=== PATIENT | male | born 1935 | race Caucasian/White ===

== ENCOUNTER 2020-05-01 16:11 | Emergency (ER) | payer MEDICARE, OTHER, SELFPAY ==
--- NOTE | ~2020-05-01 | XR_ITS ---
EXAMINATION: XR chest 1V portable DATE: 05/01/2020 17:20 INDICATION: Fever and cough. TECHNIQUE: A single frontal view of the chest was obtained. COMPARISON: Chest single view 07/14/2010, chest CT 09/30/17 FINDINGS: The lungs are hyperexpanded, consistent with emphysema. There is mild scarring at the lung apices. No pleural effusion or pneumothorax. The heart size is normal. IMPRESSION: 1. Mild scarring at the lung apices. 2. Emphysema. Reviewed, dictated and finalized at location A. [employer]
[2020-05-01 16:24] VITALS: BP 144/45; PULSE 70; RESP 17; TEMP 36.9; O2SAT 99
[2020-05-01 17:27] LABS: Basophils Percent Auto 0.3 % (0.2-1.2); Eosinophils Percent Auto 0.2 % (0-4.4); Hematocrit 41.6 % (42.0-52.0); Hemoglobin 13.9 g/dL (14.0-18.0); Immature Granulocyte Absolute 0.01 K/mm3 (0.00-0.031); Immature Granulocyte Percent A 0.2 % (0-0.5); Mean Corpuscular HGB Conc 33.4 g/dl (32-36); Mean Corpuscular Hemoglobin 31.8 pg (26-34); Mean Corpuscular Volume 95.2 fl (80-100); Mean Platelet Volume 10.3 fl (7.4-10.4); Monocytes Absolute Auto 0.6 K/mm3 (0.1-0.6); Monocytes Percent Auto 10.8 % (2.6-8.5); Neutrophils Absolute Auto 3.6 K/mm3 (1.3-6.7); Neutrophils Percent Auto 62.5 % (45.5-73.1); Platelet Count Result 186 k/mm3 (150-375); Red Blood Count 4.37 M/mm3 (4.6-6.20); Red Cell Distribution Width 13.1 % (11.5-14.5); White Blood Count 5.8 K/mm3 (4.5-10.0)
--- NOTE | 2020-05-01 17:38 | ED.GENADULT ---
HPI - General Adult General Chief complaint: Upper Respiratory Infection Stated complaint: respiratory infection, possible covid Time Seen by Provider: 05/01/20 17:21 Source: patient Mode of arrival: ambulatory Limitations: no limitations History of Present Illness HPI narrative: Patient is 84 years old came from home complaining of intermittent, headache, body ache, sore throat, fever, chills usually gets better with Tylenol for the last few days.. Currently patient feeling okay denying any symptoms. Patient's had a diagnosis of COVID-19 and was admitted to our hospital 4 days ago. Currently patient denying any fever, chills, nausea, vomiting, headache, chest pain, shortness of breath or back pain. Related Data Home Medications Medication Instructions Recorded Confirmed docusate sodium 100 mg PO DAILY 05/01/20 loratadine 10 mg PO DAILY 05/01/20 losartan 100 mg PO DAILY 05/01/20 morphine 30 mg PO Q12-24H 05/01/20 nystatin 100,000 unit PO QID 05/01/20 pantoprazole 40 mg PO QAM 05/01/20 ropinirole 0.5 mg PO TID 05/01/20 trazodone 100 mg PO HS PRN 05/01/20 Allergies Allergy/AdvReac Type Severity Reaction Status Date / Time brimonidine Allergy Unknown Verified 05/01/20 17:44 lisinopril Allergy Unknown Verified 05/01/20 17:44 travoprost [From Travatan Z] Allergy Unknown Verified 05/01/20 17:44 Review of Systems Review of Systems: Narrative: CONSTITUTIONAL: Denies fever, chills, or sweats. EYES: Denies visual changes, redness, or discharge. ENT: Denies rhinorrhea, congestion, sore throat, or otalgia. CARDIOVASCULAR: Denies chest pain, palpitations, or edema. RESPIRATORY: Denies cough or dyspnea. GASTROINTESTINAL: Denies abdominal pain, nausea, vomiting, or diarrhea. GENITOURINARY: Denies dysuria or hematuria. SKIN: Denies rash or itching. MUSCULOSKELETAL: Denies back pain, joint pain, or myalgia. NEUROLOGIC: Denies headache, numbness, or weakness. PSYCHIATRIC: Denies anxiety or depression. [facility] Past Medical History Medical History (Updated 05/01/20 @ 18:23 by Evelin Alvarado MD) Community acquired pneumonia COPD (chronic obstructive pulmonary disease) Hypertension Social History Social History (Updated 05/01/20 @ 18:18 by Evelin Alvarado MD) Social History: Patient does not smoke, or drink or uses drugs Second hand tobacco smoke exposure: No Gender identity (if verbalized by the patient): Male Exam Narrative: Exam Narrative: General appearance: Well-developed, well-nourished. Patient granddaughter at the bedside Skin: Normal color Head: Normocephalic, nontraumatic Eyes: Clear conjunctiva ENT: Oropharynx normal, ears normal, nose normal Neck: Supple, nontender Chest and respiratory: Airway patent, no respiratory distress, no accessory muscle use Heart: Regular rate/rhythm Abdomen: Soft, nontender, no organomegaly, quiet bowel sounds Vascular: Normal peripheral pulses, normal capillary refill. Musculoskeletal: Normal range of motion, nontender back Neurologic: Alert and oriented ?3, [employer] is normal as tested, no gross motor deficit Course Course Emergency Course: Stable Vital Signs Vital signs: Vital Signs Temperature 36.9 C 05/01/20 16:24 Pulse Rate 70 05/01/20 16:24 Respiratory Rate 17 05/01/20 16:24 Blood Pressure 144/45 H 05/01/20 16:24 Pulse Oximetry 99 05/01/20 16:24 Temperature 36.9 C 05/01/20 16:24 Pulse Rate 70 05/01/20 16:24 Respiratory Rate 17 05/01/20 16:24 Blood Pressure 144/45 H 05/01/20 16:24 Pulse Oximetry 99 05/01/20 16:24 Medical Decision Making MDM Narrative Medical decision making narrative: Currently patient does not have symptoms of COVID-19
[2020-05-01 17:40] LABS: Alanine Aminotransferase 11 U/L (4-50); Albumin Level 4.1 g/dL (3.5-5.1); Alkaline Phosphatase 92 U/L (38-126); Anion Gap 7 mmol/L (8-16); Aspartate Amino Transferase 22 U/L (17-59); Bilirubin,Total 0.2 mg/dL (0.2-1.3); Blood Urea Nitrogen 18 mg/dL (9-20); Calcium 8.7 mg/dL (8.4-10.2); Carbon Dioxide 33 mmol/L (22-30); Chloride 97 mmol/L (98-107); Estimated CRCL calculation 50 ml/min; Estimated Glomerular Filt Rate > 60; Glucose 94 mg/dL (75-110); Potassium 4.3 mmol/L (3.4-5.0); Sodium 137 mmol/L (137-145)
[2020-05-01 18:43] VITALS: BP 128/80; PULSE 74; RESP 18; TEMP 36.7; O2SAT 99
[2020-05-03 18:19] LABS: SARS-CoV-2 RNA PCR Positive
== END 2020-05-01 18:44 | disposition home or self-care (01) ==
PROVIDERS: Emergency Provider Emergency Medicine
DX: U07.1 COVID-19 (principal); J44.9 Chronic obstructive pulmonary disease, unspecified; I10 Essential (primary) hypertension
CPT/HCPCS: 36415; 71045; 80053; 85025; 87635; 99283; C9803; U0003

== ENCOUNTER 2021-04-28 14:55 | Emergency (ER) | payer MEDICARE, SELFPAY ==
--- NOTE | ~2021-04-28 | XR_ITS ---
XR ankle RT min 3V 04/28/2021 15:39 INDICATION: Cellulitis. Evaluate for osteomyelitis. Right ankle pain. PROCEDURE: 4 views right ankle COMPARISON: No prior studies for comparison. FINDINGS: Fracture, dislocation or subluxation is not identified. Ankle mortise intact. Talar dome wi thin normal limits. No erosive changes are seen. The soft tissues appear within normal limits. No fo reign bodies are identified. IMPRESSION: 1: No significant bone or joint abnormality. If there is concern for osteomyelitis, correlation with MRI is recommended. Reviewed, dictated and finalized at location A. IMPRESSION: 1: No significant bone or joint abnormality. If there is concern for osteomyeli tis, correlation with MRI is recommended.
[2021-04-28 14:56] VITALS: BP 128/60; PULSE 67; RESP 17; TEMP 36.9; O2SAT 97
--- NOTE | 2021-04-28 15:43 | ED.WOUNDLAC ---
HPI - Wound/Laceration General Chief Complaint: Wound/Laceration Stated Complaint: RIGHT ANKLE WOUND Time Seen by Provider: 04/28/21 15:10 Source: patient History of Present Illness HPI narrative: Patient presents with concern for worsening wound. Patient reports he had some erythema to the outside of his right ankle approximately 1 week ago he was seen and in urgent care and started on doxycycline. Reports his pain is worsening he has not noted much improvement in his erythema family is concerned so he came to the ER for evaluation. Reports his pain is achy, constant, worse with walking around, no radiation. Denies any fevers or chills denies any nausea vomiting or diarrhea Related Data Home Medications Medication Instructions Recorded Confirmed docusate sodium 100 mg PO DAILY 05/01/20 loratadine 10 mg PO DAILY 05/01/20 losartan 100 mg PO DAILY 05/01/20 morphine 30 mg PO Q12-24H 05/01/20 pantoprazole 40 mg PO QAM 05/01/20 ropinirole 0.5 mg PO TID 05/01/20 trazodone 100 mg PO HS PRN 05/01/20 albuterol (refill) See Rx Instructions .ROUTE 04/28/21 04/28/21 .COMPLEX PRN budesonide-formoterol [Symbicort] 2 puff INHALATION Q12H 04/28/21 doxycycline hyclate 04/28/21 ipratropium-albuterol spray INHALATION 04/28/21 Allergies Allergy/AdvReac Type Severity Reaction Status Date / Time brimonidine Allergy Unknown Verified 04/28/21 15:17 lisinopril Allergy Unknown Verified 04/28/21 15:17 travoprost [From Travatan Z] Allergy Unknown Verified 04/28/21 15:17 Review of Systems Review of Systems: CONSTITUTIONAL: Denies fever, chills, or sweats. EYES: Denies visual changes, redness, or discharge. ENT: Denies rhinorrhea, congestion, sore throat, or otalgia. CARDIOVASCULAR: Denies chest pain, palpitations, or edema. RESPIRATORY: Denies cough or dyspnea. GASTROINTESTINAL: Denies abdominal pain, nausea, vomiting, or diarrhea. GENITOURINARY: Denies dysuria or hematuria. SKIN: Denies rash or itching. MUSCULOSKELETAL: Denies back pain, joint pain, or myalgia. NEUROLOGIC: Denies headache, numbness, dizziness, or weakness. PSYCHIATRIC: Denies anxiety or depression. All systems reviewed & are unremarkable except as noted in HPI and below PMFSH Past Medical History Medical History Community acquired pneumonia COPD (chronic obstructive pulmonary disease) Hypertension Social History Social History Social History: Patient does not smoke, or drink or uses drugs Second hand tobacco smoke exposure: No Gender identity (if verbalized by the patient): Male Exam Narrative: GENERAL: Well-appearing, well-nourished, and in no acute distress. HEAD: Normocephalic, atraumatic. EYES: PERRLA and EOMI. ENT: Nares clear, no rhinorrhea or epistaxis. Mucous membranes moist. NECK: Supple. No masses. No JVD EXTREMITIES: Normal range of motion 2 x 2 area of erythema and warmth with a central scab that is moderately tender to palpation. Pain with palpation is diffuse around the lateral aspect of his right ankle there is no focal bony tenderness. The ankle joint is not warm or edematous there is no pain with axial loading. SKIN: Warm, dry, no rash. NEURO: No focal deficits. Alert and oriented x3. PSYCH: Normal mood and affect. Course Reevaluation(s) Reevaluation #1: Patient resting comfortably imaging and labs are reviewed with patient. Patient is comfortable with the outpatient plan and changing his medications. Family at bedside and also agree with plan. Date: 04/28/21 Time: 17:06 Vital Signs Vital signs: Vital Signs Temperature 36.9 C 04/28/21 14:56 Pulse Rate 67 04/28/21 14:56 Respiratory Rate 17 04/28/21 14:56 Blood Pressure 128/60 04/28/21 14:56 Pulse Oximetry 97 04/28/21 14:56 Temperature 36.9 C 04/28/21 14:56 Pulse Rate 60 04/28/21 17:32 Respiratory Rate 15 04/28/21 17:32 Blood Press
[2021-04-28 16:01] LABS: Basophils Absolute Auto 0.1 K/mm3 (0.0-0.1); Basophils Percent Auto 0.6 % (0.2-1.2); Eosinophils Absolute Auto 0.1 K/mm3 (0-0.3); Eosinophils Percent Auto 1.1 % (0-4.4); Hematocrit 42.9 % (42.0-52.0); Hemoglobin 14.1 g/dL (14.0-18.0); Immature Granulocyte Absolute 0.02 K/mm3 (0.00-0.031); Immature Granulocyte Percent A 0.2 % (0-0.5); Lymphocytes Absolute Auto 2.06 K/mm3 (0.9-3.2); Lymphocytes Percent Auto 19.9 % (18.3-44.2); Mean Corpuscular HGB Conc 32.9 g/dl (32-36); Mean Corpuscular Hemoglobin 32.6 pg (26-34); Mean Corpuscular Volume 99.1 fl (80-100); Mean Platelet Volume 10.4 fl (7.4-10.4); Monocytes Absolute Auto 0.9 K/mm3 (0.1-0.6); Monocytes Percent Auto 8.5 % (2.6-8.5); Neutrophils Absolute Auto 7.2 K/mm3 (1.3-6.7); Neutrophils Percent Auto 69.7 % (45.5-73.1); Platelet Count Result 221 k/mm3 (150-375); Red Blood Count 4.33 M/mm3 (4.6-6.20); Red Cell Distribution Width 12.4 % (11.5-14.5); White Blood Count 10.4 K/mm3 (4.5-10.0)
[2021-04-28 16:25] LABS: Alanine Aminotransferase 12 U/L (4-50); Albumin Level 3.8 g/dL (3.5-5.1); Alkaline Phosphatase 84 U/L (38-126); Anion Gap 8 mmol/L (8-16); Aspartate Amino Transferase 21 U/L (17-59); Bilirubin,Total 0.6 mg/dL (0.2-1.3); Blood Urea Nitrogen 21 mg/dL (9-20); Calcium 9.2 mg/dL (8.4-10.2); Carbon Dioxide 32 mmol/L (22-30); Chloride 99 mmol/L (98-107); Estimated CRCL calculation 46 ml/min; Estimated Glomerular Filt Rate > 60; Glucose 113 mg/dL (65-110); Sodium 139 mmol/L (137-145)
[2021-04-28 16:25] LABS: Erythrocyte Sedimentation Rate 8 mm/hr (0-20)
[2021-04-28 16:52] LABS: CRP 1.3 mg/dL (<1.0); Potassium 4.5 mmol/L (3.4-5.0)
[2021-04-28 17:32] VITALS: BP 112/78; PULSE 60; RESP 15; O2SAT 100
== END 2021-04-28 17:35 | disposition home or self-care (01) ==
PROVIDERS: Emergency Provider Emergency Medicine
DX: L03.115 Cellulitis of right lower limb (principal); J44.9 Chronic obstructive pulmonary disease, unspecified; I10 Essential (primary) hypertension; Z87.01 Personal history of pneumonia (recurrent)
CPT/HCPCS: 36415; 73610; 80053; 85025; 85652; 86140; 99283

== ENCOUNTER 2022-02-17 22:12 | Inpatient (IN) | payer MEDICARE, OTHER, SELFPAY ==
[2022-02-17] VITALS (9 sets, daily range): BP systolic 115–162; BP diastolic 67–86; PULSE 64–94; RESP 21–35; TEMP 36.2; O2SAT 94–100
--- NOTE | ~2022-02-17 | XR_ITS ---
EXAMINATION: XR chest 1V portable DATE: 02/19/2022 05:45 INDICATION: Respiratory failure. TECHNIQUE: A single frontal view of the chest was obtained on 2 radiographs. COMPARISON: Chest single view 02/18/2022, chest CT 09/30/2017 FINDINGS: The lungs are hyperexpanded with lucencies, consistent with emphysema. There are airspace o pacities in the mid and upper lung zones. No pleural effusion or pneumothorax. The heart size is norm al. The endotracheal tube tip is 3.6 cm above the april. The nasogastric tube tip is in the stomach. A left upper extremity peripherally inserted central venous catheter (PICC) is seen with tip at the superior cavoatrial junction. There are changes of posterior fusion procedure in lumbar spine. IMPRESSION: 1. Stable airspace opacities in the mid and upper lung lung zones, likely at least predominantly scar ring. Pneumonia cannot be excluded. 2. Emphysema. Reviewed, dictated and finalized at location A. IMPRESSION: 1. Stable airspace opacities in the mid and upper lung lung zones, likely at le ast predominantly scarring. Pneumonia cannot be excluded. 2. Emphysema.
--- NOTE | ~2022-02-17 | XR_ITS ---
EXAMINATION: XR chest 1V portable DATE: 02/17/2022 22:46 INDICATION: Respiratory distress. TECHNIQUE: A single frontal view of the chest was obtained. COMPARISON: Chest single view 05/01/2020 FINDINGS: The lungs are hyperexpanded with lucencies, consistent with emphysema. There are airspace o pacities in the upper lung zones and right midlung zone. No pleural effusion or pneumothorax. The hea rt size is normal. IMPRESSION: 1. Airspace opacities in right midlung zone and the upper lung zones, likely at least predominantly s carring. Pneumonia cannot be excluded. 2. Emphysema. Reviewed, dictated and finalized at location A. IMPRESSION: 1. Airspace opacities in right midlung zone and the upper lung zones, likely at least predominantly scarring. Pneumonia cannot be excluded. 2. Emphysema.
--- NOTE | ~2022-02-17 | CT_ITS ---
EXAMINATION: CTA chest PE protocol DATE: 02/21/2022 12:02 INDICATION: Hypoxia. Shortness of breath. TECHNIQUE: Computed tomography angiography (CTA) of the chest was performed with 100 mL Omnipaque-350 intravenous contrast timed to evaluate the pulmonary arteries. Coronal maximum intensity projection 3D-reconstructions were created by the technologist. Automated exposure control and iterative reconst ruction technique were employed. The dose-length product was 202.25 mGy-cm. COMPARISON: Chest CT 09/30/2017 FINDINGS: There is moderate emphysema. There is chronic scarring at the lung apices. There is materia l in the right-sided bronchi, likely aspiration. There are dependent airspace and groundglass opaciti es in right lower lobe. There are centrilobular nodules and tree-in-bud opacities in right middle lob e. There is volume loss of right lung. Calcified bilateral lung nodules are consistent with old granu lomatous disease. There is a small left pneumothorax. There is a trace left pleural effusion. There a re tree-in-bud opacities in left lower lobe. The endotracheal tube tip is 4.2 cm above the april. Th e nasogastric tube tip is in the stomach. Calcifications in the spleen are consistent with old granul omatous disease. There is a 3 mm stone in right kidney. There is a 5 mm stone in left kidney. There i s no pulmonary embolus. There is kyphosis and moderate spondylosis of thoracic spine. IMPRESSION: 1. No pulmonary embolus. 2. Aspiration in the right-sided bronchi with volume loss of right lung and pneumonia involving right lower lobe and right middle lobe. Mild pneumonia in left lower lobe. 3. Small left pneumothorax. Trace left pleural effusion. I called this result to Dr. Mcghee. 4. Small right pleural effusion. 5. Mild emphysema. Reviewed, dictated and finalized at location A. IMPRESSION: 1. No pulmonary embolus. 2. Aspiration in the right-sided bronchi with volume loss of right lung and pne umonia involving right lower lobe and right middle lobe. Mild pneumonia in left lower lobe. 3. Small left pneumothorax. Trace left pleural effusion. I called this result t o Dr. Mcghee. 4. Small right pleural effusion. 5. Mild emphysema.
--- NOTE | ~2022-02-17 | XR_ITS ---
EXAMINATION: XR chest ET placement DATE: 02/18/2022 01:32 INDICATION: Intubation. TECHNIQUE: A single frontal view of the chest was obtained. COMPARISON: Chest single view 02/17/2022, 05/01/[address] 09/30/2017 FINDINGS: The lungs are hyperexpanded with lucencies, consistent with emphysema. There are airspace o pacities in right midlung zone and the upper lung zones. No pleural effusion or pneumothorax. The hea rt size is normal. The endotracheal tube tip is 4.1 cm above the april. The nasogastric tube tip is in the stomach with proximal side port in the distal esophagus. IMPRESSION: 1. Airspace opacities in right midlung zone in the upper lung zones, likely at least predominantly sc arring. Pneumonia cannot be excluded. 2. Emphysema. Reviewed, dictated and finalized at location A. IMPRESSION: 1. Airspace opacities in right midlung zone in the upper lung zones, likely at least predominantly scarring. Pneumonia cannot be excluded. 2. Emphysema.
--- NOTE | ~2022-02-17 | CT_ITS ---
EXAMINATION: CT brain wo con DATE: 02/18/2022 09:27 INDICATION: Anisocoria. TECHNIQUE: Computed tomography (CT) of the head was performed without intravenous contrast. The mA wa s adjusted according to patient size. Iterative reconstruction technique was employed. The dose-lengt h product was 681.00 mGy-cm. COMPARISON: Head CT 02/18/2022 FINDINGS: There is diffuse brain volume loss. There are scattered areas of low attenuation in the cer ebral white matter, which is within normal limits for the patient's age. There is no intracranial hem orrhage, acute infarction, or abnormal intracranial mass lesion. The ventricles are normal in size. T here are likely changes of ocular lens replacement surgeries. The mastoid air cells are normal. IMPRESSION: 1. Normal aging brain. Reviewed, dictated and finalized at location A. IMPRESSION: 1. Normal aging brain.
--- NOTE | ~2022-02-17 | XR_ITS ---
EXAMINATION: XR chest 1V portable DATE: 02/21/2022 05:27 INDICATION: Respiratory failure. TECHNIQUE: A single frontal view of the chest was obtained. COMPARISON: Chest single view 02/20/2022, chest CT 09/30/2017 FINDINGS: The lungs are hyperexpanded with lucencies, consistent with emphysema. There are airspace o pacities in the mid and upper lung zones. No pleural effusion or pneumothorax. The heart size is norm al. The endotracheal tube tip is 2.9 cm above the april. A left upper extremity peripherally inserte d central venous catheter (PICC) is seen with tip at the superior cavoatrial junction. The nasogastri c tube tip is beyond the inferior margin of the radiograph, but at least to the stomach. IMPRESSION: 1. Stable airspace opacities in the mid and upper lung zones, likely at least predominantly scarring. Pneumonia cannot be excluded. 2. Emphysema. Reviewed, dictated and finalized at location A. IMPRESSION: 1. Stable airspace opacities in the mid and upper lung zones, likely at least p redominantly scarring. Pneumonia cannot be excluded. 2. Emphysema.
--- NOTE | ~2022-02-17 | CT_ITS ---
EXAMINATION: CT brain wo con DATE: 02/18/2022 02:09 INDICATION: Altered mental status. TECHNIQUE: Computed tomography (CT) of the head was performed without intravenous contrast. The mA wa s adjusted according to patient size. Iterative reconstruction technique was employed. The dose-lengt h product was 681.00 mGy-cm. COMPARISON: None FINDINGS: There is diffuse brain volume loss. There are scattered areas of low attenuation in the cer ebral white matter, which is within normal limits for the patient's age. There is no intracranial hem orrhage, acute infarction, or abnormal intracranial mass lesion. The ventricles are normal in size. T he mastoid air cells are normal. There is mild mucosal thickening in the ethmoid sinuses. There are l ikely changes of ocular lens replacement surgeries. IMPRESSION: 1. Normal aging brain. Reviewed, dictated and finalized at location A. IMPRESSION: 1. Normal aging brain.
--- NOTE | ~2022-02-17 | XR_ITS ---
EXAMINATION: XR chest 1V portable DATE: 02/20/2022 05:42 INDICATION: Respiratory failure. TECHNIQUE: A single frontal view of the chest was obtained on 2 radiographs. COMPARISON: Chest single view 02/19/2022, chest CT 09/30/2017 FINDINGS: The lungs are hyperexpanded, consistent with emphysema. There are airspace opacities in the mid and upper lung zones. No pleural effusion or pneumothorax. The heart size is normal. The endotra cheal tube tip is 1.4 cm above the april. The nasogastric tube tip is in the stomach. A left upper e xtremity peripherally inserted central venous catheter (PICC) is seen with tip at the superior cavoat rial junction. IMPRESSION: 1. Stable airspace opacities in the mid and upper lung zones, likely at least predominantly scarring. Pneumonia cannot be excluded. 2. Emphysema. Reviewed, dictated and finalized at location A. IMPRESSION: 1. Stable airspace opacities in the mid and upper lung zones, likely at least p redominantly scarring. Pneumonia cannot be excluded. 2. Emphysema.
--- NOTE | ~2022-02-17 | XR_ITS ---
XR chest ET placement 02/21/2022 11:13 Indication: Respiratory distress Procedure: AP portable chest Comparison: Comparison to multiple prior studies sequentially, with oldest reviewed study dated 02/19. Findings: Endotracheal tube tip 5.8 cm above the april. PICC line tip in the SVC. Study limited by r otakaushik. Patchy bilateral airspace disease, compatible with pneumonia. No significant effusion or pne umothorax. Impression: 1: Patchy bilateral airspace disease, consistent with pneumonia. Reviewed, dictated and finalized at location A. Impression: 1: Patchy bilateral airspace disease, consistent with pneumonia.
--- NOTE | ~2022-02-17 | XR_ITS ---
EXAMINATION: XR abdomen/kub 1V DATE: 02/18/2022 01:33 INDICATION: Nasogastric tube placement. TECHNIQUE: A supine view of the abdomen was obtained. COMPARISON: None. FINDINGS: The lower abdomen is excluded. There are no dilated loops of bowel. There is a large volume of stool in the colon. The nasogastric tube tip is in the stomach. There are changes of posterior fu sadia procedure in lumbar spine. IMPRESSION: 1. Nasogastric tube tip in the stomach. Reviewed, dictated and finalized at location A.
--- NOTE | 2022-02-17 22:14 | ECG_ITS ---
Measurements Intervals Sebastian Rate: 87 P: 94 AR: 167 QRS: -72 QRSD: 126 T: 95 QT: 390 QTc: 472 Interpretive Statements SINUS RHYTHM WITH FREQUENT VENTRICULAR PREMATURE COMPLEXES BASELINE ARTIFACT LEFT AXIS DEVIATION CANNOT RULE OUT LATERAL MYOCARDIAL INFARCTION, OF INDETERMINATE AGE ABNORMAL ECG NO PREVIOUS ECG AVAILABLE FOR COMPARISON Electronically Signed On 02-18-2022 16:14:17 CDT by Yordan Ortiz M.D.
--- NOTE | 2022-02-17 22:16 | ED.SOB ---
HPI - SOB/Dyspnea General Chief Complaint: Shortness of Breath/Dyspnea Stated Complaint: shortness of breath cpr started by family Time Seen by Provider: 02/17/22 22:14 Source: patient, EMS, RN notes reviewed and old records reviewed Mode of arrival: EMS Limitations: clinical condition History of Present Illness HPI Narrative: This is an 86 year old male with history of COPD who presents from home for evaluation of respiratory distress. EMS states they were called for difficulty breathing. It is reported that family was performing CPR but on EMS arrival patient had strong carotid pulse. His oxygen saturation was in the 60%. EMS states patient was found to have lots PVCs on the monitor technician so they gave him 150 mg amiodarone. Patient is on nonrebreather. Patient denies chest pain. He does reports shortness of breath but he is unable to state how long. MD elicited complaint: shortness of breath Related Data Home Medications Medication Instructions Recorded Confirmed docusate sodium 100 mg tablet 100 mg PO DAILY 05/01/20 loratadine 10 mg capsule 10 mg PO DAILY 05/01/20 losartan 100 mg tablet 100 mg PO DAILY 05/01/20 morphine 30 mg capsule 30 mg PO Q12-24H 05/01/20 ropinirole 0.5 mg tablet 0.5 mg PO TID 05/01/20 trazodone 100 mg tablet 100 mg PO HS PRN Sleep 05/01/20 02/18/22 albuterol (refill) 90 See Rx Instructions .Route 04/28/21 02/18/22 mcg/actuation aerosol inhaler .COMPLEX PRN Shortness Of Breath budesonide-formoterol HFA 80 2 puff inhalation Q12H 04/28/21 02/18/22 mcg-4.5 mcg/actuation aerosol inhaler (Symbicort) clindamycin HCl 300 mg capsule 300 mg PO QID 02/18/22 02/18/22 Allergies Allergy/AdvReac Type Severity Reaction Status Date / Time brimonidine Allergy Unknown Verified 02/17/22 22:21 lisinopril Allergy Unknown Verified 02/17/22 22:21 travoprost [From Travatan Z] Allergy Unknown Verified 02/17/22 22:21 Review of Systems Review of Systems: ROS unobtainable: Yes unobtainable due to medical condition [facility] Past Medical History Medical History (Updated 02/18/22 @ 03:51 by Nora Joseph DO) Chronic wound of extremity COPD (chronic obstructive pulmonary disease) Diabetes mellitus GERD (gastroesophageal reflux disease) Glaucoma History of esophageal stricture Hyperlipidemia Hypertension Restless leg syndrome Surgical History Surgical History (Updated 02/18/22 @ 02:43 by Nora Joseph DO) History of lumbar fusion Status post cataract extraction of both eyes with insertion of intraocular lens Status post dilatation of esophageal stricture Family History Family History Other Unknown family medical history Social History Social History (Updated 02/18/22 @ 03:30 by Nora Joseph DO) Social History: Patient lives at home with family. He served in the [employer] in the [employer]. He has been since 2020. 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 Patient has total of 5 children his youngest daughter is his healthcare power of insurance attorney. Code status: No CPR Healthcare power of insurance attorney: Daughter Smoking packs per day: 1 Smoking cigarettes per day: 20.0 Years smoked: 40 Smoking pack-years: 40.00 Smoking status: Former smoker Second hand tobacco smoke exposure: No Alcohol intake: unknown Substance use: unknown Substance use type: does not use Gender identity (if verbalized by the patient): Male Spiritual care concerns: No Exam Const: General: alert and ill appearing Nutritional Appearance: thin (cachetic) Limitations: altered mental status HENMT: Head: normal to inspection Throat: posterior oropharynx normal Eyes: EOM: EOMs intact bilaterally Chest: Chest palpation & inspection: normal inspection of the chest Resp: Effort & Inspection: tachypneic Auscultation: crackles Cardio: Rhythm: abnormal rhythm Heart sounds: [place]
[2022-02-17] MEDS: methylPREDNISolone SOD SUCC 125 MG VIAL IV PUSH (22:21)
[2022-02-17] MEDS: ALBUTEROL SULFATE NEB 2.5 MG/3 ML INH 10 MG INHALATION (22:23)
[2022-02-17 22:26] LABS: Alveolar/Arterial O2 Gradient 395.2 mmHg; Base Excess ABG -1.8 mEq/l (+/-2.0); Fractional Inspired Oxygen 100 %; Oxygen Content ABG 19.9 %vol (16.0-22.0); Oxygen Saturation ABG 99.4 % (95.0-100.0); Oxyhemoglobin 98.1 % THb (90.0-100.0); PO2 ABG 253.2 mmHg (80.0-100.0); PO2 FiO2 Ratio Arterial Blood 2.53 %
[2022-02-17 22:28] LABS: Device NON-REBREATHER MASK; PCO2 ABG 64.6 mmHg (35.0-45.0); Site Drawn RIGHT RADIAL; pH ABG 7.239 (7.350-7.450)
[2022-02-17 22:46] LABS: Basophils Absolute Auto 0.1 K/mm3 (0.0-0.1); Basophils Percent Auto 0.5 % (0.2-1.2); Eosinophils Absolute Auto 0.1 K/mm3 (0-0.3); Eosinophils Percent Auto 0.5 % (0-4.4); Hematocrit 44.3 % (42.0-52.0); Hemoglobin 14.3 g/dL (14.0-18.0); Immature Granulocyte Percent A 0.6 % (0-0.5); Lymphocytes Absolute Auto 1.44 K/mm3 (0.9-3.2); Lymphocytes Percent Auto 8.4 % (18.3-44.2); Mean Corpuscular HGB Conc 32.3 g/dl (32-36); Mean Corpuscular Hemoglobin 31.7 pg (26-34); Mean Corpuscular Volume 98.2 fl (80-100); Monocytes Percent Auto 5.6 % (2.6-8.5); Neutrophils Absolute Auto 14.5 K/mm3 (1.3-6.7); Neutrophils Percent Auto 84.4 % (45.5-73.1); Platelet Count Result 260 k/mm3 (150-375); Red Blood Count 4.51 M/mm3 (4.6-6.20); Red Cell Distribution Width 12.6 % (11.5-14.5); White Blood Count 17.2 K/mm3 (4.5-10.0)
[2022-02-17 22:58] LABS: Alanine Aminotransferase 20 U/L (6-50); Albumin Level 3.9 g/dL (3.5-5.1); Alkaline Phosphatase 106 U/L (38-126); Anion Gap 13 mmol/L (8-16); Aspartate Amino Transferase 43 U/L (17-59); Bilirubin,Total 0.9 mg/dL (0.2-1.3); Blood Urea Nitrogen 22 mg/dL (9-20); Calcium 8.8 mg/dL (8.4-10.2); Carbon Dioxide 28 mmol/L (22-30); Chloride 95 mmol/L (98-107); Estimated Glomerular Filt Rate > 60; Glucose 251 mg/dL (65-110); Magnesium 2.2 mg/dL (1.6-2.3); Sodium 136 mmol/L (137-145)
[2022-02-17 22:59] LABS: INR 1.4; Prothrombin Time 16.3 Seconds (11.1-14.7)
[2022-02-17 23:00] LABS: Partial Thromboplastin Time 31.1 SECONDS (22.3-36.8)
[2022-02-17 23:08] LABS: NT Pro B Type Natriuretic Pept 3300 pg/mL (5-100)
--- NOTE | 2022-02-17 23:20 | ECG_ITS ---
Measurements Intervals [place] Rate: 64 P: 81 AK: 169 QRS: -76 QRSD: 97 T: 81 QT: 426 QTc: 440 Interpretive Statements SINUS RHYTHM WITH SINUS ARRHYTHMIA LEFT ANTERIOR FASCICULAR BLOCK POSSIBLE LATERAL MYOCARDIAL INFARCTION, OF INDETERMINATE AGE ABNORMAL ECG COMPARED TO ECG 02/17/2022 22:14:26 SINUS ARRHYTHMIA NOW PRESENT LEFT ANTERIOR FASCICULAR BLOCK NOW PRESENT Electronically Signed On 02-18-2022 16:15:55 CDT by Yordan Ortiz M.D.
[2022-02-17 23:23] LABS: SARS-CoV-2 RNA PCR Negative
--- NOTE | 2022-02-17 23:45 | PC.NURSE ---
Attempted to contact Latrice (pts daughter) at this time. No answer.
[2022-02-18] VITALS (36 sets, daily range): BP systolic 80–150; BP diastolic 58–97; PULSE 45–116; RESP 20–25; TEMP 35–37.2; O2SAT 78–100; BMI 14.2
--- NOTE | 2022-02-18 | ECHO_ITS ---
Patient Info Name: Camilo Aguilar Age: 86 years : 1935 Gender: Male Ht: 71 in Wt: 102 lbs BSA: 1.50 m2 HR: 60 bpm BP: 109 / 71 mmHg Heart Rhythm: Sinus Rhythm Technical Quality: Fair Exam Date: 02/18/2022 11:26 AM Exam Location: [facility] Pulmonary Patient Status: Inpatient Admit Date: 02/18/2022 Staff Ordering Physician: Annalisa Friedman MD Needle Loom Weaver: Angela Sierra RDCS Attending Provider: Nora Joseph DO Referring Physician: Elder OROSCO; Exam Type: CA echo doppler color flow Study Info Indications I46.9 - Cardiac arrest, cause unspecified Complete two-dimensional, color flow and Doppler transthoracic echocardiogram is performed. Summary 1. Complete two-dimensional, color flow and Doppler transthoracic echocardiogram is performed. 2. Limited study with limited views. 3. Left ventricular chamber dimension is mildly enlarged. 4. Left ventricular systolic function is lower limits of normal, estimated at 50-55%. 5. There is no increased left ventricular wall thickness. 6. Left ventricular septal wall motion is abnormal with septal motion related to bundle branch block. 7. The left ventricular diastolic function is grade I diastolic dysfunction. 8. There is trace tricuspid valve regurgitation. 9. No pulmonary hypertension, estimated pulmonary arterial systolic pressure is 29 mmHg. Left Ventricle Left ventricular chamber dimension is mildly enlarged. Left ventricular systolic function is lower limits of normal, estimated at 50-55%. There is no increased left ventricular wall thickness. Left ventricular septal wall motion is abnormal with septal motion related to bundle branch block. The left ventricular diastolic function is grade I diastolic dysfunction. Limited study with limited views. Right Ventricle Right ventricular chamber dimension is normal. Right ventricular systolic function is normal. Left Atria Left atrial chamber dimension is normal. Right Atria Right atrial chamber dimension is not well visualized. Aortic Valve The aortic valve is not well visualized. There is no aortic valve stenosis. Pulmonic Valve The pulmonic valve is not well visualized. Mitral Valve The mitral valve has thickened leaflets. There is trace mitral valve regurgitation. The mitral valve annulus is mildly calcified. Tricuspid Valve The tricuspid valve leaflets are normal. There is trace tricuspid valve regurgitation. No pulmonary hypertension, estimated pulmonary arterial systolic pressure is 29 mmHg. Pericardium/Pleural The pericardium appears normal. There is no pericardial effusion. Inferior Vena Cava Normal inferior vena cava with <50% collapse upon inspiration consistent with elevated right atrial pressure, 10 mmHg. Aorta The aortic root size at the sinus of Valsalva is not well visualized. Left Ventricular Outflow Tract Name Value Normal LVOT Doppler LVOT Peak Gradient 7 mmHg LVOT Mean Gradient 3 mmHg LVOT VTI 27 cm LVOT VTI/AV VTI Ratio 0.8 Pulmonic Valve Name
[2022-02-18] MEDS: SODIUM CHLORIDE 0.9% IV 1,000 ML 999 ML IV CONT (00:14)
[2022-02-18 00:33] LABS: Lactic Acid Reflex 1.5 mmol/L (0.7-2.0)
[2022-02-18 00:41] LABS: Appearance Urine Clear (Clear); Bilirubin Urine Negative (Negative); Blood Urine 3+ (Negative); Color Urine Yellow (Yellow); Glucose Urine UA Negative (Negative); Ketones Urine Negative (Negative); Leukocyte Esterase Ur Negative LEU/UL (Negative); Nitrate Urine Negative (Negative); Protein Urine 2+ mg/dL (Negative); Specific Grav Ur >= 1.030 (1.001-1.035); Urobilinogen Urine 0.2 mg/dL (<2.0)
[2022-02-18] MEDS: LORazepam INJ (*CRX) 2 MG/ML VIAL (00:43)
--- NOTE | 2022-02-18 00:44 | PM.IMHP ---
H&P: HPI History of Present Illness Date/Time: 02/18/22 00:44 Chief Complaint: Respiratory distress Narrative: 86-year-old male with past medical history of hypertension, COPD and diet-controlled diabetes who presented to the ER from home via EMS due to shortness of breath. According to the patient's daughter the patient had been having shortness of breath for 2 days. He developed associated cough but was unable to produce any sputum. He had an associated fever of 101 on the night of the . He took some NSAIDs and his temperature came down to 99. He was taking meds the next day day the patient reported that he had difficulty swallowing the pills and thought that they had went down the wrong way. He felt as if the pills were stuck and was not able to get them back up. He did have some gagging and she thinks that he may have had some emesis or aspiration. His worsening respiratory status he refused to come to the ER. In the patient was lying down family members note the patient was breathing shallow and slow. They called EMS who told them to start chest compressions. When they started chest compressions on the patient the patient began yelling because it was causing him pain. When EMS arrived at the home patient was satting 60% on room air and had a bounding pulse. After they place patient on non-rebreather patient's oxygen saturations came up to the 80s and heart rate was in the 150s. EMS noted multiple PVCs and give the patient 150 mL amiodarone bolus. On arrival to the ER the patient was alert but was unable to state how long he had been short of breath. The patient was placed on BiPAP after ABG demonstrated acute hypercapnic respiratory failure but PO2 was 253. Patient was placed on BiPAP 14/640% FiO2. Initially patient was doing well. When nursing staff went into the room at 12:35 a.m. in the patient began having increased difficulty breathing. And dropped his oxygen saturations 78%. Staff went to talk to the ER physician at which time the patient had a run of V-tach. The patient became unresponsive and underwent 1 round of CPR. The patient awoke at 4:43 a.m. confused and grabbing at staff and kicking. Ativan was administered in the patient received respiratory support with bag-valve mask. Family decided they wanted the patient intubated. Patient received 20 mg of etomidate 50 mg of rocuronium for intubation. 8.0 ET tube was placed 26 cm at the gumline. I was present at bedside at the time of intubation. The family arrived to the room shortly thereafter. The patient's healthcare power pre k lead teacher/daughter wanted the patient to remain a full code and continue with aggressive care. She states that she would like to keep the patient alive for the benefit of the living family members. She wanted to talk to other family members before making other decisions. Patient is usually treated at the [facility] but she did not know if she wanted the patient transferred at this time. After she discussed the events with family members she did decide to make the patient a no CPR but wanted to continue with ventilator support. Post code patient had normal sinus rhythm with no significant ectopy. Blood pressures were stable. Pulse ox on ventilator with 60% FiO2 was 100%. Repeat ABG was performed 1 hour after intubation and patient was still hypercarbic. I adjusted the tile a to 450 and continued rate at 22. When the patient arrived to the ICU the patient was moving all extremities. According the patient's daughter the patient has been profoundly depressed since his last year. He has been declining as for his appetite and has had significant weight loss Entirety of HPI was obtained from discussion with ER physician and patient's daughter was at bedside. Review of Systems Review of Systems: Unattainable due to patient condition. ROS unobtainable: Yes unobtainable due to endotracheal tube PMFSH Past Medical History Medical Hi
[2022-02-18 00:47] LABS: Add Urine Microscopic? YES; Bacteria Urine Trace /hpf; Hyaline Casts Urine 20-29 /lpf; Mucus Urine Rare /lpf; RBC Urine 21-50 /hpf (0-2); Squamous Epithelial Cell Urine Rare /hpf (Few)
--- NOTE | 2022-02-18 00:58 | ECG_ITS ---
Measurements Intervals [place] Rate: 84 P: 82 GA: 168 QRS: -69 QRSD: 102 T: 90 QT: 418 QTc: 495 Interpretive Statements SINUS RHYTHM WITH OCCASIONAL VENTRICULAR PREMATURE COMPLEXES LEFT ANTERIOR FASCICULAR BLOCK PROBABLE ANTEROLATERAL MYOCARDIAL INFARCTION, OF INDETERMINATE AGE ABNORMAL ECG COMPARED TO ECG 02/17/2022 23:27:20 NO SIGNIFICANT CHANGES Electronically Signed On 02-18-2022 16:16:24 CDT by Yordan Ortiz M.D.
--- NOTE | 2022-02-18 02:09 | PC.NURSE ---
0035 - pt straight cathed for urine. Pt began c/o increased difficulty breathing. Respiratory at bedside. This RN went to speak with BREN Posey. Pt then went into run of v-tach. Per generation technologist, pt became unresponsive. 0037 - CPR initiated. BREN Posey at bedside 0039 - ROSC obtained. CPR stopped. 0043 - Pt awake, but confused. Pt grabbing at staff and kicking legs. Per VORB BREN Posey, administered 1mg IV Ativan. Breathing assisted by ED respiratory via BVM. 0047 - BREN Posey spoke with family who okayed intubation at bedside. Per VORB BREN Posey, 20mg IV Etomidate and 50mg IV Rocuronium given. 0049 - Intubation complete. ET tube 26 at teeth. Size 8. 0150 - Pt taken to CT.
[2022-02-18 02:52] LABS: Alveolar/Arterial O2 Gradient 264.4 mmHg; Base Excess ABG 2.1 mEq/l (+/-2.0); Carboxyhemoglobin 0.2 % THb (0-2.0); Fractional Inspired Oxygen 60 %; HCO3 ABG 29.9 mEq/l (22.0-26.0); Methemoglobin ABG 0.4 %THb (0-1.5); Oxygen Content ABG 19.1 %vol (16.0-22.0); Oxygen Saturation ABG 96.6 % (95.0-100.0); Oxyhemoglobin 95.8 % THb (90.0-100.0); PO2 ABG 96.7 mmHg (80.0-100.0); PO2 FiO2 Ratio Arterial Blood 1.61 %; Reduced Hemoglobin 3.6 %THb (0-5.0); Total Hemoglobin 14.1 g/dL (12.0-18.0); pH ABG 7.311 (7.350-7.450)
[2022-02-18 02:54] LABS: Arterial Blood Gas Ventilator rate 22 /MIN; Device VENTILATOR; Modified Allen's Test Unable to perform; PCO2 ABG 60.6 mmHg (35.0-45.0); Site Drawn RIGHT RADIAL
[2022-02-18 02:55] LABS: Arterial Blood Gas PEEP 5 cmH2O; Arterial Blood Gas Tidal Volume 350 ml; Arterial Blood Gas Vent Mode CMV
--- NOTE | 2022-02-18 03:13 | PC.NURSE ---
Pt began waking up, kicking legs and grabbing at staff. Per VORB EDP Posey, administer 2mg IV Versed and 50mcg IV Fentanyl.
[2022-02-18] MEDS: MIDAZOLAM HCL (*CRX) 2 MG/2 ML VIAL IV PUSH ×2 (03:34→12:05)
[2022-02-18] MEDS: fentaNYL CITRATE INJ (*CRX) 100 MCG/2 ML VIAL 50 MCG IV PUSH (03:35)
[2022-02-18] MEDS: MIDAZOLAM 100MG/NS 100ML(*CRX) 100 MG/100 ML BAG IV CONT (03:45)
[2022-02-18] MEDS: FENTANYL 2,500MCG/NS250ML(*CRX 2,500 MCG/250 ML BAG 7.5 MCG IV CONT (03:45)
--- NOTE | 2022-02-18 04:00 | ADMGEN ---
This patient, Camilo Aguilar, was admitted to Intensive Care Unit-2 at 0324. Patient/family oriented to hospital policies and general routines including ID bracelet, bed and alarms, visiting hours, pain management, procedures, bathroom and other care routines, personal items, smoking policy, room service/diet, and visiting hours. Information on how to activate the Rapid Response Team has been discussed. Patient/Family are encouraged to report perceived risks to care and to ask questions if they do not understand what they are told or what they should do.
[2022-02-18 05:17] LABS: Basophils Percent Auto 0.2 % (0.2-1.2); Hematocrit 41.7 % (42.0-52.0); Hemoglobin 13.5 g/dL (14.0-18.0); Immature Granulocyte Percent A 0.5 % (0-0.5); Lymphocytes Absolute Auto 0.48 K/mm3 (0.9-3.2); Lymphocytes Percent Auto 2.5 % (18.3-44.2); Mean Corpuscular HGB Conc 32.4 g/dl (32-36); Mean Corpuscular Hemoglobin 31.8 pg (26-34); Mean Corpuscular Volume 98.3 fl (80-100); Mean Platelet Volume 10.1 fl (7.4-10.4); Monocytes Absolute Auto 0.5 K/mm3 (0.1-0.6); Monocytes Percent Auto 2.8 % (2.6-8.5); Neutrophils Absolute Auto 18.1 K/mm3 (1.3-6.7); Platelet Count Result 209 k/mm3 (150-375); Red Blood Count 4.24 M/mm3 (4.6-6.20); Red Cell Distribution Width 12.6 % (11.5-14.5); White Blood Count 19.3 K/mm3 (4.5-10.0)
[2022-02-18 05:27] LABS: Lactic Acid Reflex 1.5 mmol/L (0.7-2.0)
[2022-02-18 05:28] LABS: Alanine Aminotransferase 34 U/L (6-50); Albumin Level 3.7 g/dL (3.5-5.1); Alkaline Phosphatase 104 U/L (38-126); Anion Gap 9 mmol/L (8-16); Aspartate Amino Transferase 57 U/L (17-59); Bilirubin,Total 0.8 mg/dL (0.2-1.3); Blood Urea Nitrogen 23 mg/dL (9-20); Calcium 8.4 mg/dL (8.4-10.2); Carbon Dioxide 28 mmol/L (22-30); Chloride 94 mmol/L (98-107); Estimated CRCL calculation 42 ml/min; Estimated Glomerular Filt Rate > 60; Glucose 286 mg/dL (65-110); Potassium 3.8 mmol/L (3.4-5.0); Sodium 131 mmol/L (137-145)
[2022-02-18] MEDS: INSULIN ASPART (*BKC) 100 UNITS/ML SUB-Q (05:44)
[2022-02-18] MEDS: SODIUM CHLORIDE 0.9% IV 1,000 ML 50 ML IV CONT (07:45)
[2022-02-18 07:58] LABS: Alveolar/Arterial O2 Gradient 56.4 mmHg; Base Excess ABG 1.6 mEq/l (+/-2.0); Fractional Inspired Oxygen 40 %; Oxygen Content ABG 19.1 %vol (16.0-22.0); Oxygen Saturation ABG 99.4 % (95.0-100.0); PCO2 ABG 35.7 mmHg (35.0-45.0); PO2 ABG 187.7 mmHg (80.0-100.0); PO2 FiO2 Ratio Arterial Blood 4.69 %; Total Hemoglobin 13.6 g/dL (12.0-18.0); pH ABG 7.464 (7.350-7.450)
[2022-02-18 08:06] LABS: Device VENTILATOR; Modified Allen's Test Pass; Site Drawn RIGHT RADIAL
[2022-02-18 08:07] LABS: Arterial Blood Gas PEEP 5 cmH2O; Arterial Blood Gas Tidal Volume 350 ml; Arterial Blood Gas Vent Mode CMV; Arterial Blood Gas Ventilator rate 22 /MIN
[2022-02-18] MEDS: hetaSTARCH 6%/NACL 500 ML 250 ML IV CONT (08:30)
[2022-02-18] MEDS: MINERAL OIL/WHITE PETROLATUM OINTMENT 1 APPLIC EACH EYE ×2 (08:31→20:02)
[2022-02-18] MEDS: PANTOPRAZOLE SODIUM IV 40 MG VIAL IV PUSH (08:31)
--- NOTE | 2022-02-18 09:38 | WPDCNINT ---
Assessment and Plan Assessment and plan (1) Cardiac arrest: Code(s): I46.9 - Cardiac arrest, cause unspecified Status: Acute Assessment and Plan: Cardiac arrest most likely related to respiratory distress, respiratory arrest -patient on a brief cardiac arrest with 1 round of CPR and epinephrine with ROSC -patient woke up post cardiac arrest according to the hospitalist -cardiology has been consulted to follow the patient -will obtain echocardiogram -mild elevation in troponin secondary to cardiac arrest and hypoxemia -EKG did not show any evidence of acute coronary injury (2) Acute hypercapnic respiratory failure: Code(s): J96.02 - Acute respiratory failure with hypercapnia Status: Acute Assessment and Plan: Acute respiratory failure likely due to pneumonia seen on chest x-ray which shows airspace opacities in the right midlung zone and upper lung zones. Emphysema -intubated on 02/17/2022 -patient currently on CMV mode of ventilation, peep of 5, 40% FiO2 -ABGs reviewed and ventilator adjusted -continue Zosyn and vancomycin -continue bronchodilators -sedated with fentanyl and Versed infusion (3) Elevated troponin level not due to acute coronary syndrome: Code(s): R77.8 - Other specified abnormalities of plasma proteins Status: Acute Assessment and Plan: Elevated troponin likely related to heart failure Continue to monitor Cardiology following the patient -EKG with no evidence of acute coronary problem (4) Severe protein-calorie malnutrition: Code(s): E43 - Unspecified severe protein-calorie malnutrition Status: Acute Assessment and Plan: Will start tube feeds (5) Chronic wound of extremity: Status: Acute Assessment and Plan: Wound care to follow the patient (6) Diabetes: Code(s): E11.9 - Type 2 diabetes mellitus without complications Status: Acute Assessment and Plan: Accu-Cheks and sliding scale insulin (7) Essential hypertension: Code(s): I10 - Essential (primary) hypertension Status: Acute Assessment and Plan: Hold all antihypertensives as blood pressures are borderline (8) GERD (gastroesophageal reflux disease): Code(s): K21.9 - Gastro-esophageal reflux disease without esophagitis Status: Acute Assessment and Plan: Continue Protonix Plan DVT prophylaxis: Heparin SQ Q12H Stress ulcer prophylaxis: Protonix Nutrition: Will start tube feeds Discussed with daughters and updated them with patient's condition and plan of care. They aware of patient's mild nutrition and pneumonia. I told them the prognosis is guarded Code Status: No CPR Critical Care Time Spent: 48 minutes Due to a high probability of clinically significant, life threatening deterioration, the patient required my highest level of preparedness to intervene emergently and I personally spent this critical care time directly and personally managing the patient. This critical care time included obtaining a history; examining the patient; pulse oximetry; ordering and review of studies; arranging urgent treatment with development of a management plan; evaluation of patient's response to treatment; frequent reassessment; and discussions with other providers. It was exclusive of separately billable procedures and treating other patients and teaching time. Please see Assessment and Plan section and the rest of the note for further information on patient assessment and treatment Sound Engineer Audio Control Consult Note Consult date: 02/18/22 Reason for consult: Acute hypercapnic respiratory failure, cardiac arrest HPI: Camilo Aguilar is a 86 year old male COPD, diabetes, wound on the extremity, history of esophageal stricture, essential hypertension, restless leg syndrome, glaucoma, GERD, hyperlipidemia presented the ED on 02/17/2022 with complains of shortness of breath which has been ongoing for almost 1 week, it has been worsening
--- NOTE | 2022-02-18 11:53 | PM.CNCAR ---
Assessment and Plan Assessment and plan (1) Elevated troponin level not due to acute coronary syndrome: Code(s): R77.8 - Other specified abnormalities of plasma proteins Status: Acute (2) Respiratory arrest: Code(s): R09.2 - Respiratory arrest Status: Acute Plan This is an 86-year-old man who is very cachectic malnourished appears to have severe chronic lung disease admitted yesterday with shortness of breath that was getting worse at home it sounds like he had a choking incident either on food, pills or both and had severe respiratory embarrassment. In the setting of all that he did have some ventricular arrhythmias and apparently also had a cardiac arrest at home or at least if not there in the emergency room where he had some ventricular tachycardia. He was intubated and admitted to the ICU after this event. Troponin levels are mildly elevated which is not surprising given the hypoxemia with which he presented. I do not see any ECG evidence that this is an acute coronary problem. This is a very cachectic appearing elderly man who is not a candidate for invasive cardiac workup. An echocardiogram has been done a short time ago the results of that are pending at this time. Aggressive supportive care will be recommended as long as that is what the family wishes. Tito Burkett MD [facility] History of Present Illness History of Present Illness Consult date/time: 02/18/22 11:53 Reason For Visit: Acute Respiratory Failure Narrative: This is an 86-year-old man who is being seen in the ICU at the request of the hospitalist because of ventricular arrhythmias there were noted yesterday at the time of admission. The patient is intubated sedated on mechanical ventilator in obviously and able to provide any history. His daughter is with him in the room who fortunately is able to recount the events of yesterday. Apparently she states that the patient has been having difficulty with some increasing shortness of breath for at least several days as well as for several days he has been running a fever at home. His temperature was sometimes in the range of 101 orally. He yesterday was from found to be in significant distress and they felt that he had choked on some food and later possibly choked on some pills that they were giving him. He was trying to clear his throat and becoming more in more distress and had a lot of secretions that he was choking on. He refused to allow them to call an ambulance. When he got to the point where he was losing responsiveness they finally called EMS. They did conduct some CPR before EMS arrived. Apparently the CPR Yamilka revived him in he did have a bounding pulse but was in respiratory distress upon arrival. He was placed on a BiPAP and brought to the emergency room. He because of respiratory distress down there he was intubated and placed on mechanical ventilator support. During all this process he did have some runs of ventricular tachycardia according to the chart. Those are not recorded on the record for my personal review. He following that was admitted to the ICU where he is on intravenous Versed and is a on a ventilator and is unresponsive at this time. His 12 lead electrocardiograms do not show any evidence of acute coronary/acute injury pattern he did have ventricular ectopic activity on the 1st EKG. He is currently in sinus rhythm/sinus bradycardia with heart rates in the 40s and 50s. Troponin levels were elevated at or just over 1.0. Patient's chest x-ray demonstrates what appears to be severe emphysema. In this setting I am seeing him in consultation. The patient lives with family the daughter who is in the room is primary caregiver. She states that he has become rather depressed after the of his last year and has lost a lot of weight. He currently has a BMI of 14. Review of Systems Review of Systems: ROS unobtainable: Yes unobtainable due to endotracheal tube PMFSH
[2022-02-18 12:05] LABS: Hemoglobin A1C 5.5 % (<5.7)
--- NOTE | 2022-02-18 13:08 | WPDURCON ---
Assessment and Plan Assessment and plan (1) Difficult Caballero catheter placement: Code(s): T83.9XXA - Unspecified complication of genitourinary prosthetic device, implant and graft, initial encounter Status: Acute Assessment and Plan: A 16fr. temperature caballero catheter was placed with mild difficulty, 250cc of dark elijah urine noted on return. Betadine swabs were used prior to prep. Caballero is needed d/t intubated patient and for I&O purposes. Ok to remove and do a voiding trial when patient is awakened and more stable. Urology Consult Note HPI Date Seen: 02/18/22 Time Seen: 09:00 Requesting Physician: Nora Joseph DO Primary Care Provider: PHYSICIAN NOT ON STAFF Consult Narrative Reason for consult: Difficult Catheter Placement Narrative: Camilo Aguilar is a 86 year old male who presented to the ER with shortness of breath x 2 days at home, he became lethargic and unresponsive at home. His family called 911 and he was brought to the ER by EMS. He was admitted to ICU and we were asked to place a caballero d/t several failed attempts at placing the catheter from nursing staff. he is intubated and no family is at the bedside. He is not a previous patient of ours. I have no known urologic medical history. His WBC is 19.3, creatinine is 0.70, UA isn't suggestive of a UTI, but culture is pending. He did have RBC's in his urine but I assume this is from multiple catheter attempts. Review of Systems Review of Systems: ROS unobtainable: Yes unobtainable due to endotracheal tube PMFSH Past Medical History Medical History Chronic wound of extremity COPD (chronic obstructive pulmonary disease) Diabetes mellitus GERD (gastroesophageal reflux disease) Glaucoma History of esophageal stricture Hyperlipidemia Hypertension Restless leg syndrome Surgical History Surgical History History of lumbar fusion Status post cataract extraction of both eyes with insertion of intraocular lens Status post dilatation of esophageal stricture Family History Family History Other Unknown family medical history Social History Social History Social History: Patient lives at home with family. He served in the [email or web address] in the [place]. He has been since 2020. 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 Patient has total of 5 children his youngest daughter is his healthcare power of crop picker. Code status: No CPR Healthcare power of crop picker: Daughter Smoking packs per day: 1 Smoking cigarettes per day: 20.0 Years smoked: 40 Smoking pack-years: 40.00 Smoking status: Former smoker Second hand tobacco smoke exposure: No Alcohol intake: unknown Substance use: unknown Substance use type: does not use Gender identity (if verbalized by the patient): Male Spiritual care concerns: No Meds Home Medications and Allergies Home Medications Medication Instructions Recorded Confirmed Type docusate sodium 100 mg tablet 100 mg PO DAILY 05/01/20 History loratadine 10 mg capsule 10 mg PO DAILY 05/01/20 History losartan 100 mg tablet 100 mg PO DAILY 05/01/20 History morphine 30 mg capsule 30 mg PO Q12-24H 05/01/20 History ropinirole 0.5 mg tablet 0.5 mg PO TID 05/01/20 History trazodone 100 mg tablet 100 mg PO HS PRN Sleep 05/01/20 02/18/22 History albuterol (refill) 90 See Rx Instructions .Route 04/28/21 02/18/22 History mcg/actuation aerosol inhaler .COMPLEX PRN Shortness Of Breath budesonide-formoterol HFA 80 2 puff inhalation Q12H 04/28/21 02/18/22 History mcg-4.5 mcg/actuation aerosol inhaler (Symbicort) clindamycin HCl 300 mg capsule 300 mg PO QID 02/18/22 02/18/22 History Allergies Allergy/AdvReac Type Severity Reaction
[2022-02-18] MEDS: SODIUM CHLORIDE 0.9% IV 500 ML IV CONT (13:50)
[2022-02-18 14:09] LABS: Glucose Point of Care 121 mg/dl (65-105)
[2022-02-18] MEDS: LIDOCAINE HCL 1% PF INJ 5 ML VIAL INFILTRATE (15:20)
--- NOTE | 2022-02-18 17:16 | PM.IMPN ---
Progress Note: A&P Assessment and Plan (1) Respiratory arrest: Code(s): R09.2 - Respiratory arrest Status: Acute (2) Ventricular tachycardia: Code(s): I47.2 - Ventricular tachycardia Status: Acute (3) Elevated troponin level not due to acute coronary syndrome: Code(s): R77.8 - Other specified abnormalities of plasma proteins Status: Acute (4) Severe protein-calorie malnutrition: Code(s): E43 - Unspecified severe protein-calorie malnutrition Status: Acute (5) Chronic wound of extremity: Status: Acute (6) Non-ST elevation [place] (NSTEMI): Code(s): I21.4 - Non-ST elevation (NSTEMI) myocardial infarction Status: Acute Plan Patient has been admitted to the ICU following V-tach arrest that was in part due to acute on chronic hypercapnic respiratory failure. Patient has been intubated and is on sedation with fentanyl and Versed. Ventilator settings have been adjusted with tidal volume to 450 which is more appropriate given the patient's height. Continue rate at 22. Daily ABGs and chest x-rays have been ordered. Given the report of fever at home and respiratory failure patient was started on antibiotic therapy with Zosyn and vancomycin. Patient is high risk for aspiration given clinical history. Patient has elevated troponin due to cardiac strain from acute hypoxic respiratory failure. EKG does not demonstrate any acute changes in the patient was not complaining of any chest pain prior to today's events. Patient's troponin elevation is likely secondary to infection and hypoxia. It would not surprise me is patient's troponin continued to climb given his episode of ventricular tachycardia and subsequent arrest. Cardiology has been consulted. Will defer with her to start heparin drip to Cardiology Service. The patient reportedly has diet-controlled diabetes but was hyperglycemic on arrival to the ER. This could be in part due to stress response. Will check Accu-Cheks q.[address] patient on sliding scale insulin. Wound care to been consulted to manage the patient's chronic wounds. Dietitian has been consulted for tube feeding recommendations. 02/18/2022 interval history: patient was brought in with shortness of breath and had a cardiac arrest while at home and upon arrival to the emergency depart most likely secondary to respiratory failure currently patient is on the ventilator, suspect patient has pneumonia, being treated with Zosyn and vancomycin, patient javid is present in the room, patient recently diet since then he has lost 40lbs, patient is seen by broadcast supervisor and jackie. Subjective Date/time seen: 02/18/22 17:16 02/18/2022 interval history: patient was brought in with shortness of breath and had a cardiac arrest while at home and upon arrival to the emergency depart most likely secondary to respiratory failure currently patient is on the ventilator, suspect patient has pneumonia, being treated with Zosyn and vancomycin, patient javid is present in the room, patient recently diet since then he has lost 40lbs, patient is seen by broadcast supervisor and jackie. Review of Systems Review of Systems: ROS unobtainable: Yes unobtainable due to endotracheal tube, unobtainable due to medical condition and unobtainable due to mental status Exam Narrative: Under nourished Patient is comfortable, NAD HEENT: ET tube in place LUNGS: Normal respiratory efforts ABD: Not distended Lower extremities: no edema SKIN: nonjaundiced Neuro: On vent and sedated. Objective Data Vital Signs Vital Signs: Vital Signs - 24 hr 02/17/22 22:05 02/17/22 22:36 02/17/22 22:46 Temperature 97.2 F L Pulse Rate 69 81 Respiratory Rate 25 H 28 H Blood Pressure 162/86 H Pulse Oximetry 100 100 Oxygen Delivery Non-Rebreather Mask BiPAP BiPAP Oxygen Flow Rate 15 Fraction of Inspired Oxygen 02/17/22 22:25 02/17/22 22:55 02/17/22 22:
[2022-02-18] MEDS: ALBUMIN HUMAN 25% 25 GM/100 ML 100 ML IVPB (18:09)
[2022-02-18 18:46] LABS: Glucose Point of Care 104 mg/dl (65-105)
[2022-02-18] MEDS: CENTRAL LINE FLUSH 10 ML IV PUSH (20:06)
[2022-02-18 20:09] LABS: Glucose Point of Care 100 mg/dl (65-105)
[2022-02-18 22:35] LABS: Troponin I 0.362 ng/mL (0.000-0.034)
[2022-02-19] VITALS (32 sets, daily range): BP systolic 108–165; BP diastolic 49–98; PULSE 50–99; RESP 20–29; TEMP 36.4–37.5; O2SAT 98–100
[2022-02-19 00:01] LABS: Glucose Point of Care 153 mg/dl (65-105)
[2022-02-19] MEDS: ALBUMIN HUMAN 25% 25 GM/100 ML 100 ML IVPB ×3 (00:05→11:23)
--- NOTE | 2022-02-19 02:13 | PC.NURSE ---
0215 Patient restless, high pressure noted per vent. Fentanyl gtt resumed at 25mcgs
[2022-02-19] MEDS: MIDAZOLAM 100MG/NS 100ML(*CRX) 100 MG/100 ML BAG IV CONT (02:29)
[2022-02-19 04:39] LABS: Basophils Percent Auto 0.3 % (0.2-1.2); Eosinophils Percent Auto 0.2 % (0-4.4); Hematocrit 31.6 % (42.0-52.0); Hemoglobin 10.5 g/dL (14.0-18.0); Immature Granulocyte Absolute 0.06 K/mm3 (0.00-0.031); Immature Granulocyte Percent A 0.4 % (0-0.5); Lymphocytes Absolute Auto 1.12 K/mm3 (0.9-3.2); Lymphocytes Percent Auto 7.8 % (18.3-44.2); Mean Corpuscular HGB Conc 33.2 g/dl (32-36); Mean Corpuscular Hemoglobin 31.6 pg (26-34); Mean Corpuscular Volume 95.2 fl (80-100); Mean Platelet Volume 9.9 fl (7.4-10.4); Monocytes Absolute Auto 0.9 K/mm3 (0.1-0.6); Monocytes Percent Auto 6.5 % (2.6-8.5); Neutrophils Absolute Auto 12.2 K/mm3 (1.3-6.7); Neutrophils Percent Auto 84.8 % (45.5-73.1); Platelet Count Result 171 k/mm3 (150-375); Red Blood Count 3.32 M/mm3 (4.6-6.20); Red Cell Distribution Width 12.7 % (11.5-14.5); White Blood Count 14.4 K/mm3 (4.5-10.0)
[2022-02-19 04:49] LABS: Lactic Acid Reflex 0.8 mmol/L (0.7-2.0)
[2022-02-19 04:52] LABS: Alanine Aminotransferase 18 U/L (6-50); Albumin Level 3.2 g/dL (3.5-5.1); Alkaline Phosphatase 62 U/L (38-126); Anion Gap 5 mmol/L (8-16); Aspartate Amino Transferase 30 U/L (17-59); Bilirubin,Total 0.5 mg/dL (0.2-1.3); Blood Urea Nitrogen 26 mg/dL (9-20); Carbon Dioxide 31 mmol/L (22-30); Chloride 102 mmol/L (98-107); Estimated CRCL calculation 37 ml/min; Estimated Glomerular Filt Rate > 60; Glucose 125 mg/dL (65-110); Magnesium 1.9 mg/dL (1.6-2.3); Phosphorus 3.2 mg/dL (2.5-4.5); Potassium 3.5 mmol/L (3.4-5.0); Sodium 138 mmol/L (137-145)
[2022-02-19] MEDS: CENTRAL LINE FLUSH 10 ML IV PUSH ×3 (05:10→20:10)
[2022-02-19 05:28] LABS: Alveolar/Arterial O2 Gradient 120.2 mmHg; Base Excess ABG 1.1 mEq/l (+/-2.0); Carboxyhemoglobin 0.2 % THb (0-2.0); Fractional Inspired Oxygen 40 %; HCO3 ABG 26.3 mEq/l (22.0-26.0); Methemoglobin ABG 0.3 %THb (0-1.5); Oxygen Content ABG 16.1 %vol (16.0-22.0); Oxygen Saturation ABG 98.1 % (95.0-100.0); PCO2 ABG 44.2 mmHg (35.0-45.0); PO2 ABG 114.2 mmHg (80.0-100.0); PO2 FiO2 Ratio Arterial Blood 2.86 %; Reduced Hemoglobin 2.5 %THb (0-5.0); Total Hemoglobin 11.7 g/dL (12.0-18.0); pH ABG 7.393 (7.350-7.450)
[2022-02-19] MEDS: SODIUM CHLORIDE 0.9% IV 1,000 ML 50 ML IV CONT (08:53)
[2022-02-19] MEDS: MINERAL OIL/WHITE PETROLATUM OINTMENT 1 APPLIC EACH EYE ×2 (08:54→20:10)
[2022-02-19] MEDS: PANTOPRAZOLE SODIUM IV 40 MG VIAL IV PUSH ×2 (08:54→20:10)
[2022-02-19 09:04] LABS: Glucose Point of Care 119 mg/dl (65-105)
--- NOTE | 2022-02-19 10:32 | PCNFU ---
Nutrition Follow-Up Complete: Inadequate Energy Intake as related to Protein Calorie Malnutrition as evidenced by greater than 20% weight loss in the past 1 year. Goal: Meet estimated nutritional needs Patient is progressing towards goal. We will continue current goal. Pt current nutrition is Vital AF 1.2 at 40 ml/hr. Nutrition recommendation: Goal rate at 55 ml/hr Last recorded weight is 47.1 kg, up from 46.3 kg on admit. Bowel Motility:No Bm reported. Labs Reviewed:Glu 125, BUN 26, Hct 31.6,Hgb 10.5 Meds Noted:Vanco, Zosyn, Fentanyl, Versed Skin: Stage III pressure ulcer-Right ankle, Stage II pressure ulcer-Left ankle Additional Notes: Patient remains on mechanical vent, started on tube feedings yesterday of Vital AF 1.2. Current at 40 ml/hr, goal rate at 55 ml/hr. Goal rate is at 55 ml/hr which will provide 1452 kcals/91 gms protein/981 ml water. Meeting 100% kcal needs at 30 kcal/kg and 100% protein needs. Free water flush 30 ml q 4 hours. Agree with diet orders. Will monitor weight, labs, tube feeding tolerance daily and reassessing every Friday and Friday.
[2022-02-19] MEDS: polyethylene glycoL 3350 17 GM POWD.PACK PO (11:23)
[2022-02-19] MEDS: POTASSIUM CHLORIDE 20 MEQ PACKET (FOR LIQUID) 40 MEQ FEED TUBE (11:23)
[2022-02-19] MEDS: BISACODYL 10 MG SUPPOSITORY RECTAL (11:24)
--- NOTE | 2022-02-19 12:11 | WPDINTPN ---
Progress Note: A&P Assessment and Plan (1) Acute hypercapnic respiratory failure: Code(s): J96.02 - Acute respiratory failure with hypercapnia Status: Acute Assessment and Plan: Acute respiratory failure likely due to pneumonia seen on chest x-ray which shows airspace opacities in the right midlung zone and upper lung zones. Baseline Emphysema -intubated on 02/17/2022 -chest x-ray reviewed - 1. Stable airspace opacities in the mid and upper lung lung zones, likely at least predominantly scarring. Pneumonia cannot be excluded. 2. Emphysema -patient currently on CMV mode of ventilation, peep of 5, 30% FiO2 -ABGs reviewed -will perform sedation holiday and evaluate patient for a weaning trial -continue Zosyn and vancomycin for pneumonia -continue bronchodilators (2) Cardiac arrest: Code(s): I46.9 - Cardiac arrest, cause unspecified Status: Acute Assessment and Plan: Cardiac arrest most likely related to respiratory distress and respiratory arrest -patient on a brief cardiac arrest with 1 round of CPR and epinephrine with ROSC -patient woke up post cardiac arrest according to the hospitalist and follows commands off sedation -cardiology has been consulted Echo cardiogram reviewed -EKG did not show any evidence of acute coronary injury Echo 1. Complete two-dimensional, color flow and Doppler transthoracic echocardiogram is performed. ? 2. Limited study with limited views. ? 3. Left ventricular chamber dimension is mildly enlarged. ? 4. Left ventricular systolic function is lower limits of normal, estimated at 50-55%. ? 5. There is no increased left ventricular wall thickness. ? 6. Left ventricular septal wall motion is abnormal with septal motion related to bundle branch block. ? 7. The left ventricular diastolic function is grade I diastolic dysfunction. ? 8. There is trace tricuspid valve regurgitation. ? 9. No pulmonary hypertension, estimated pulmonary arterial systolic pressure is 29 mmHg. (3) Elevated troponin level not due to acute coronary syndrome: Code(s): R77.8 - Other specified abnormalities of plasma proteins Status: Acute Assessment and Plan: Elevated troponin likely related to cardiac arrest Continue to monitor Cardiology following the patient and recommend conservative management EKG with no evidence of acute coronary problem (4) Severe protein-calorie malnutrition: Code(s): E43 - Unspecified severe protein-calorie malnutrition Status: Acute Assessment and Plan: Currently on tube feeds (5) Chronic wound of extremity: Status: Acute Assessment and Plan: Wound care to follow the patient (6) Diabetes: Code(s): E11.9 - Type 2 diabetes mellitus without complications Status: Acute Assessment and Plan: Accu-Cheks and sliding scale insulin (7) Essential hypertension: Code(s): I10 - Essential (primary) hypertension Status: Acute Assessment and Plan: Hold all antihypertensives as blood pressures are borderline all sedation (8) GERD (gastroesophageal reflux disease): Code(s): K21.9 - Gastro-esophageal reflux disease without esophagitis Status: Acute Assessment and Plan: Continue Protonix (9) Anemia: Code(s): D64.9 - Anemia, unspecified Status: Acute Assessment and Plan: Patient has a drop in his hemoglobin which could be dilutional. He has not had a bowel movement till now but if he does we will check for all blood in stool IV PPI q.12 hours Monitor hemoglobin closely Plan DVT prophylaxis: Heparin SQ Q12H Stress ulcer prophylaxis: Protonix Nutrition: Will start tube feeds Discussed with daughter at bedside updated her with patient's condition and plan of care. They aware of patient's poor nutrition status, emphysema pneumonia and respiratory failure. Patient is DNR Code Status: No CPR Critical Care Time Spent: 30 minutes Due to a high proba
--- NOTE | 2022-02-19 12:35 | PM.IMPN ---
Progress Note: A&P Assessment and Plan (1) Respiratory arrest: Code(s): R09.2 - Respiratory arrest Status: Acute (2) Ventricular tachycardia: Code(s): I47.2 - Ventricular tachycardia Status: Acute (3) Elevated troponin level not due to acute coronary syndrome: Code(s): R77.8 - Other specified abnormalities of plasma proteins Status: Acute (4) Severe protein-calorie malnutrition: Code(s): E43 - Unspecified severe protein-calorie malnutrition Status: Acute (5) Chronic wound of extremity: Status: Acute (6) Non-ST elevation [place] (NSTEMI): Code(s): I21.4 - Non-ST elevation (NSTEMI) myocardial infarction Status: Acute Plan Patient has been admitted to the ICU following V-tach arrest that was in part due to acute on chronic hypercapnic respiratory failure. Patient has been intubated and is on sedation with fentanyl and Versed. Ventilator settings have been adjusted with tidal volume to 450 which is more appropriate given the patient's height. Continue rate at 22. Daily ABGs and chest x-rays have been ordered. Given the report of fever at home and respiratory failure patient was started on antibiotic therapy with Zosyn and vancomycin. Patient is high risk for aspiration given clinical history. Patient has elevated troponin due to cardiac strain from acute hypoxic respiratory failure. EKG does not demonstrate any acute changes in the patient was not complaining of any chest pain prior to today's events. Patient's troponin elevation is likely secondary to infection and hypoxia. It would not surprise me is patient's troponin continued to climb given his episode of ventricular tachycardia and subsequent arrest. Cardiology has been consulted. Will defer with her to start heparin drip to Cardiology Service. The patient reportedly has diet-controlled diabetes but was hyperglycemic on arrival to the ER. This could be in part due to stress response. Will check Accu-Cheks q.[address] patient on sliding scale insulin. Wound care to been consulted to manage the patient's chronic wounds. Dietitian has been consulted for tube feeding recommendations. 02/18/2022 interval history: patient was brought in with shortness of breath and had a cardiac arrest while at home and upon arrival to the emergency depart most likely secondary to respiratory failure currently patient is on the ventilator, suspect patient has pneumonia, being treated with Zosyn and vancomycin, patient javid is present in the room, patient recently diet since then he has lost 40lbs, patient is seen by pierogi maker and appreciate. 02/19/2022 interval history: patient was brought in with shortness of breath and had a cardiac arrest while at home and upon arrival to the emergency depart most likely secondary to respiratory failure currently patient is on the ventilator, suspect patient has pneumonia, being treated with Zosyn and vancomycin, today patient is off sedation weaning trial is in progress, patient is strugling, will monitor, patient javid and son are present in the room, and helping patient stay calm for possible extubation, , patient recently since then he has lost 40lbs, patient is seen by pierogi maker and appreciate. Subjective Date/time seen: 02/19/22 12:35 02/19/2022 interval history: patient was brought in with shortness of breath and had a cardiac arrest while at home and upon arrival to the emergency depart most likely secondary to respiratory failure currently patient is on the ventilator, suspect patient has pneumonia, being treated with Zosyn and vancomycin, today patient is off sedation weaning trial is in progress, patient is strugling, will monitor, patient javid and son are present in the room, and helping patient stay calm for possible extubation, , patient recently since then he has lost 40lbs, patient is seen by pierogi maker and jackie. Review of
[2022-02-19 13:23] LABS: Glucose Point of Care 93 mg/dl (65-105)
[2022-02-19] MEDS: PROPOFOL IV EMULSION 100 ML 5.65 MG IV CONT (13:33)
[2022-02-19] MEDS: ALBUTEROL SULFATE NEB 2.5 MG/3 ML INH INHALATION ×2 (13:35→20:31)
[2022-02-19] MEDS: IPRATROPIUM BR 0.02% INH SOLN 0.5 MG/2.5 ML VIAL INHALATION ×2 (13:36→20:31)
[2022-02-19 17:25] LABS: Glucose Point of Care 88 mg/dl (65-105)
[2022-02-19 18:29] LABS: Hematocrit 33.8 % (42.0-52.0); Hemoglobin 11.2 g/dL (14.0-18.0); Mean Corpuscular HGB Conc 33.1 g/dl (32-36); Mean Corpuscular Hemoglobin 31.7 pg (26-34); Mean Corpuscular Volume 95.8 fl (80-100); Mean Platelet Volume 10.6 fl (7.4-10.4); Platelet Count Result 185 k/mm3 (150-375); Red Blood Count 3.53 M/mm3 (4.6-6.20); Red Cell Distribution Width 12.8 % (11.5-14.5); White Blood Count 15.8 K/mm3 (4.5-10.0)
[2022-02-19 20:08] LABS: Glucose Point of Care 104 mg/dl (65-105)
[2022-02-20] VITALS (38 sets, daily range): BP systolic 111–150; BP diastolic 60–81; PULSE 57–88; RESP 17–34; TEMP 36.8–37.8; O2SAT 93–100
[2022-02-20 00:08] LABS: Glucose Point of Care 122 mg/dl (65-105)
[2022-02-20] MEDS: PROPOFOL IV EMULSION 100 ML 7.07 MG IV CONT ×2 (00:13→12:08)
[2022-02-20 00:37] LABS: Hematocrit 33.7 % (42.0-52.0); Hemoglobin 11.1 g/dL (14.0-18.0); Mean Corpuscular HGB Conc 32.9 g/dl (32-36); Mean Corpuscular Hemoglobin 31.4 pg (26-34); Mean Corpuscular Volume 95.5 fl (80-100); Platelet Count Result 180 k/mm3 (150-375); Red Blood Count 3.53 M/mm3 (4.6-6.20); White Blood Count 13.6 K/mm3 (4.5-10.0)
[2022-02-20] MEDS: IPRATROPIUM BR 0.02% INH SOLN 0.5 MG/2.5 ML VIAL INHALATION ×4 (02:50→19:53)
[2022-02-20] MEDS: ALBUTEROL SULFATE NEB 2.5 MG/3 ML INH INHALATION ×4 (02:50→19:53)
[2022-02-20 04:58] LABS: Alveolar/Arterial O2 Gradient 113.9 mmHg; Base Excess ABG 1.9 mEq/l (+/-2.0); Carboxyhemoglobin 0.3 % THb (0-2.0); Fractional Inspired Oxygen 30 %; HCO3 ABG 25.2 mEq/l (22.0-26.0); Methemoglobin ABG 0.3 %THb (0-1.5); Oxygen Content ABG 15.1 %vol (16.0-22.0); Oxygen Saturation ABG 92.4 % (95.0-100.0); Oxyhemoglobin 90.2 % THb (90.0-100.0); PO2 ABG 58.9 mmHg (80.0-100.0); PO2 FiO2 Ratio Arterial Blood 1.96 %; Reduced Hemoglobin 9.2 %THb (0-5.0); Total Hemoglobin 11.9 g/dL (12.0-18.0); pH ABG 7.476 (7.350-7.450)
[2022-02-20 04:59] LABS: Device VENTILATOR; Site Drawn RIGHT BRACHIAL
[2022-02-20 05:00] LABS: Arterial Blood Gas PEEP 5 cmH2O; Arterial Blood Gas Tidal Volume 450 ml; Arterial Blood Gas Vent Mode CMV; Arterial Blood Gas Ventilator rate 20 /MIN
[2022-02-20 05:04] LABS: Basophils Absolute Auto 0.1 K/mm3 (0.0-0.1); Basophils Percent Auto 0.4 % (0.2-1.2); Eosinophils Absolute Auto 0.1 K/mm3 (0-0.3); Eosinophils Percent Auto 0.6 % (0-4.4); Hematocrit 33.4 % (42.0-52.0); Hemoglobin 11.1 g/dL (14.0-18.0); Immature Granulocyte Absolute 0.05 K/mm3 (0.00-0.031); Immature Granulocyte Percent A 0.4 % (0-0.5); Lymphocytes Percent Auto 8.6 % (18.3-44.2); Mean Corpuscular HGB Conc 33.2 g/dl (32-36); Mean Corpuscular Hemoglobin 31.8 pg (26-34); Mean Corpuscular Volume 95.7 fl (80-100); Mean Platelet Volume 10.5 fl (7.4-10.4); Monocytes Absolute Auto 1.1 K/mm3 (0.1-0.6); Monocytes Percent Auto 7.6 % (2.6-8.5); Neutrophils Absolute Auto 11.4 K/mm3 (1.3-6.7); Neutrophils Percent Auto 82.4 % (45.5-73.1); Platelet Count Result 194 k/mm3 (150-375); Red Blood Count 3.49 M/mm3 (4.6-6.20); White Blood Count 13.9 K/mm3 (4.5-10.0)
[2022-02-20 05:17] LABS: Alanine Aminotransferase 16 U/L (6-50); Albumin Level 3.3 g/dL (3.5-5.1); Alkaline Phosphatase 68 U/L (38-126); Anion Gap 7 mmol/L (8-16); Aspartate Amino Transferase 26 U/L (17-59); Bilirubin,Total 0.6 mg/dL (0.2-1.3); Blood Urea Nitrogen 19 mg/dL (9-20); Calcium 8.3 mg/dL (8.4-10.2); Carbon Dioxide 29 mmol/L (22-30); Chloride 99 mmol/L (98-107); Estimated CRCL calculation 49 ml/min; Estimated Glomerular Filt Rate > 60; Glucose 122 mg/dL (65-110); Lactic Acid Reflex 0.8 mmol/L (0.7-2.0); Magnesium 1.8 mg/dL (1.6-2.3); Potassium 3.2 mmol/L (3.4-5.0); Sodium 135 mmol/L (137-145)
[2022-02-20] MEDS: CENTRAL LINE FLUSH 10 ML IV PUSH ×3 (05:42→21:11)
[2022-02-20] MEDS: SODIUM CHLORIDE 0.9% IV 1,000 ML 50 ML IV CONT (06:35)
[2022-02-20 07:31] LABS: Glucose Point of Care 111 mg/dl (65-105)
[2022-02-20 08:08] LABS: Arterial Blood Gas PEEP 5 cmH2O; Arterial Blood Gas Vent Mode CMV; Arterial Blood Gas Ventilator rate 20 /MIN; Device VENTILATOR
[2022-02-20 08:09] LABS: Arterial Blood Gas Tidal Volume 450 ml
[2022-02-20] MEDS: POTASSIUM PHOS,M-BASIC-D-BASIC 15 MMOL in SODIUM CHLORIDE 0.9% IV 250 ML 63.75 MMOL IVPB (08:44)
[2022-02-20] MEDS: POTASSIUM CHLORIDE 20 MEQ PACKET (FOR LIQUID) 40 MEQ FEED TUBE (08:44)
[2022-02-20] MEDS: BISACODYL 10 MG SUPPOSITORY RECTAL ×2 (08:44→11:54)
[2022-02-20] MEDS: MINERAL OIL/WHITE PETROLATUM OINTMENT 1 APPLIC EACH EYE ×2 (08:45→21:11)
[2022-02-20] MEDS: polyethylene glycoL 3350 17 GM POWD.PACK PO (08:46)
[2022-02-20] MEDS: PANTOPRAZOLE SODIUM IV 40 MG VIAL IV PUSH ×2 (08:46→21:16)
[2022-02-20] MEDS: LIDOCAINE 5% PATCH 1 PATCH TRANSDERM (08:46)
--- NOTE | 2022-02-20 09:37 | WPDINTPN ---
Progress Note: A&P Assessment and Plan (1) Acute hypercapnic respiratory failure: Code(s): J96.02 - Acute respiratory failure with hypercapnia Status: Acute Assessment and Plan: Acute respiratory failure likely due to pneumonia seen on chest x-ray which shows airspace opacities in the right midlung zone and upper lung zones. Baseline Emphysema -intubated on 02/17/2022 -chest x-ray reviewed -withdraw ET tube by 1 cm -505 PSV trial was attempted patient failed due to high RSBI, increased work of breathing, tachycardia and significant ectopies. Patient was placed back on CMV -continue CMV mode of ventilation, peep of 5, 30% FiO2 -ABGs reviewed -continue Zosyn and vancomycin for pneumonia -continue bronchodilators (2) Cardiac arrest: Code(s): I46.9 - Cardiac arrest, cause unspecified Status: Acute Assessment and Plan: Cardiac arrest most likely related to respiratory distress and respiratory arrest -patient on a brief cardiac arrest with 1 round of CPR and epinephrine with ROSC -patient woke up post cardiac arrest according to the hospitalist and follows commands off sedation -cardiology following Echo cardiogram reviewed -EKG did not show any evidence of acute coronary injury Echo 1. Complete two-dimensional, color flow and Doppler transthoracic echocardiogram is performed. ? 2. Limited study with limited views. ? 3. Left ventricular chamber dimension is mildly enlarged. ? 4. Left ventricular systolic function is lower limits of normal, estimated at 50-55%. ? 5. There is no increased left ventricular wall thickness. ? 6. Left ventricular septal wall motion is abnormal with septal motion related to bundle branch block. ? 7. The left ventricular diastolic function is grade I diastolic dysfunction. ? 8. There is trace tricuspid valve regurgitation. ? 9. No pulmonary hypertension, estimated pulmonary arterial systolic pressure is 29 mmHg. (3) Elevated troponin level not due to acute coronary syndrome: Code(s): R77.8 - Other specified abnormalities of plasma proteins Status: Acute Assessment and Plan: Elevated troponin likely related to cardiac arrest Continue to monitor Cardiology following the patient and recommend conservative management EKG with no evidence of acute coronary problem (4) Severe protein-calorie malnutrition: Code(s): E43 - Unspecified severe protein-calorie malnutrition Status: Acute Assessment and Plan: Currently on tube feeds (5) Chronic wound of extremity: Status: Acute Assessment and Plan: Wound care to follow the patient (6) Diabetes: Code(s): E11.9 - Type 2 diabetes mellitus without complications Status: Acute Assessment and Plan: Accu-Cheks and sliding scale insulin (7) Essential hypertension: Code(s): I10 - Essential (primary) hypertension Status: Acute Assessment and Plan: Hold all antihypertensives as blood pressures are borderline all sedation (8) GERD (gastroesophageal reflux disease): Code(s): K21.9 - Gastro-esophageal reflux disease without esophagitis Status: Acute Assessment and Plan: Continue Protonix (9) Anemia: Code(s): D64.9 - Anemia, unspecified Status: Acute Assessment and Plan: Patient has a drop in his hemoglobin which could be dilutional. He has not had a bowel movement till now but if he does we will check for all blood in stool IV PPI q.12 hours Monitor hemoglobin closely which has been stable (10) Electrolyte abnormality: Code(s): E87.8 - Other disorders of electrolyte and fluid balance, not elsewhere classified Status: Acute Assessment and Plan: Replace low potassium and phosphate Plan DVT prophylaxis: Heparin SQ Q12H Stress ulcer prophylaxis: Protonix Nutrition: Continue tube feeds 02/19 Discussed with daughter at bedside updated her with patient's condition and plan of care. They aware of
[2022-02-20 09:39] LABS: Vancomycin Trough 6.7 ug/mL (10.0-20.0)
--- NOTE | 2022-02-20 10:46 | PCFNICU ---
ICU Rounding Note: Pt current nutrition is Vital AF 1.2 at 55 ml/hr. Last recorded weight is 50.1 kg, up from 46.3 kg on admit. Bowel Motility:No BM reported. Suppository and Miralax are ordered for today. Labs Reviewed:PO4 2.0,Glu 122, Cr 0.6, K 3.2, Alb 3.3,Hct 33.4,Hgb 11.1 Meds Noted:Zosyn, Vancomycin, Propofol at 7.7 ml/nm=780 kcals, Skin:Right ankle-stage III pressure ulcer, Left ankle-stage II pressure ulcer Additional Notes: Patient remains on mechanical vent and tube feedings of Vital AF 1.2 at 55 ml/hr. Tolerating tube feedings. Free water flush 30 ml q 4 hours. Propofol infusion at 7.7 ml/hr providing an additional 203 kcals. Diet supplement of Willem BID for wound healing. Breathing trial planned for today. Agree with diet orders. Following daily in ICU rounds. Will monitor weight, labs, tube feeding tolerance daily and reassessing every Friday and Friday.
--- NOTE | 2022-02-20 11:48 | PM.IMPN ---
Progress Note: A&P Assessment and Plan (1) Respiratory arrest: Code(s): R09.2 - Respiratory arrest Status: Acute (2) Ventricular tachycardia: Code(s): I47.2 - Ventricular tachycardia Status: Acute (3) Elevated troponin level not due to acute coronary syndrome: Code(s): R77.8 - Other specified abnormalities of plasma proteins Status: Acute (4) Severe protein-calorie malnutrition: Code(s): E43 - Unspecified severe protein-calorie malnutrition Status: Acute (5) Chronic wound of extremity: Status: Acute (6) Non-ST elevation [place] (NSTEMI): Code(s): I21.4 - Non-ST elevation (NSTEMI) myocardial infarction Status: Acute Plan Patient has been admitted to the ICU following V-tach arrest that was in part due to acute on chronic hypercapnic respiratory failure. Patient has been intubated and is on sedation with fentanyl and Versed. Ventilator settings have been adjusted with tidal volume to 450 which is more appropriate given the patient's height. Continue rate at 22. Daily ABGs and chest x-rays have been ordered. Given the report of fever at home and respiratory failure patient was started on antibiotic therapy with Zosyn and vancomycin. Patient is high risk for aspiration given clinical history. Patient has elevated troponin due to cardiac strain from acute hypoxic respiratory failure. EKG does not demonstrate any acute changes in the patient was not complaining of any chest pain prior to today's events. Patient's troponin elevation is likely secondary to infection and hypoxia. It would not surprise me is patient's troponin continued to climb given his episode of ventricular tachycardia and subsequent arrest. Cardiology has been consulted. Will defer with her to start heparin drip to Cardiology Service. The patient reportedly has diet-controlled diabetes but was hyperglycemic on arrival to the ER. This could be in part due to stress response. Will check Accu-Cheks q.[address] patient on sliding scale insulin. Wound care to been consulted to manage the patient's chronic wounds. Dietitian has been consulted for tube feeding recommendations. 02/18/2022 interval history: patient was brought in with shortness of breath and had a cardiac arrest while at home and upon arrival to the emergency depart most likely secondary to respiratory failure currently patient is on the ventilator, suspect patient has pneumonia, being treated with Zosyn and vancomycin, patient javid is present in the room, patient recently diet since then he has lost 40lbs, patient is seen by ornamental iron erector and appreciate. 02/19/2022 interval history: patient was brought in with shortness of breath and had a cardiac arrest while at home and upon arrival to the emergency depart most likely secondary to respiratory failure currently patient is on the ventilator, suspect patient has pneumonia, being treated with Zosyn and vancomycin, today patient is off sedation weaning trial is in progress, patient is strugling, will monitor, patient javid and son are present in the room, and helping patient stay calm for possible extubation, , patient recently since then he has lost 40lbs, patient is seen by ornamental iron erector and appreciate. 02/20/2022 interval history: patient was brought in with shortness of breath and had a cardiac arrest while at home and upon arrival to the emergency depart most likely secondary to respiratory failure currently patient is on the ventilator, suspect patient has pneumonia, being treated with Zosyn and vancomycin, blood culture so far no growth, today again patient was off sedation weaning trial was given , patient was strugling, placed back on sedation and ventilator, will monitor, today patient sister and son are present in the room, patient recently since then he has lost 40lbs, patient is seen by ornamental iron erector and appreciate. Subjective Date/time seen:
[2022-02-20 12:15] LABS: Glucose Point of Care 127 mg/dl (65-105)
[2022-02-20 16:29] LABS: Glucose Point of Care 143 mg/dl (65-105)
[2022-02-20] MEDS: ACETAMINOPHEN ELIXIR 325 MG/10.15 ML UDC 650 MG PO (18:43)
[2022-02-20] MEDS: PROPOFOL IV EMULSION 100 ML 9.89 MG IV CONT (21:09)
[2022-02-20 21:19] LABS: Glucose Point of Care 151 mg/dl (65-105)
[2022-02-21] VITALS (20 sets, daily range): BP systolic 118–133; BP diastolic 56–67; PULSE 56–113; RESP 20–27; TEMP 36.8–37.2; O2SAT 85–100
[2022-02-21 00:13] LABS: Glucose Point of Care 137 mg/dl (65-105)
[2022-02-21] MEDS: ALBUTEROL SULFATE NEB 2.5 MG/3 ML INH INHALATION ×3 (02:14→14:33)
[2022-02-21] MEDS: IPRATROPIUM BR 0.02% INH SOLN 0.5 MG/2.5 ML VIAL INHALATION ×3 (02:14→14:33)
[2022-02-21] MEDS: SODIUM CHLORIDE 0.9% IV 1,000 ML 50 ML IV CONT (04:17)
[2022-02-21] MEDS: PROPOFOL IV EMULSION 100 ML 9.89 MG IV CONT (04:17)
[2022-02-21] MEDS: CENTRAL LINE FLUSH 10 ML IV PUSH (04:18)
[2022-02-21 04:36] LABS: Basophils Absolute Auto 0.1 K/mm3 (0.0-0.1); Basophils Percent Auto 0.5 % (0.2-1.2); Eosinophils Absolute Auto 0.3 K/mm3 (0-0.3); Hemoglobin 10.8 g/dL (14.0-18.0); Immature Granulocyte Absolute 0.07 K/mm3 (0.00-0.031); Immature Granulocyte Percent A 0.6 % (0-0.5); Lymphocytes Absolute Auto 0.81 K/mm3 (0.9-3.2); Lymphocytes Percent Auto 6.4 % (18.3-44.2); Mean Corpuscular HGB Conc 32.7 g/dl (32-36); Mean Corpuscular Hemoglobin 31.3 pg (26-34); Mean Corpuscular Volume 95.7 fl (80-100); Mean Platelet Volume 10.3 fl (7.4-10.4); Monocytes Absolute Auto 1.1 K/mm3 (0.1-0.6); Monocytes Percent Auto 8.3 % (2.6-8.5); Neutrophils Absolute Auto 10.3 K/mm3 (1.3-6.7); Neutrophils Percent Auto 82.2 % (45.5-73.1); Platelet Count Result 185 k/mm3 (150-375); Red Blood Count 3.45 M/mm3 (4.6-6.20); Red Cell Distribution Width 13.2 % (11.5-14.5); White Blood Count 12.6 K/mm3 (4.5-10.0)
[2022-02-21 04:51] LABS: Alanine Aminotransferase 17 U/L (6-50); Albumin Level 3.3 g/dL (3.5-5.1); Alkaline Phosphatase 70 U/L (38-126); Anion Gap 8 mmol/L (8-16); Aspartate Amino Transferase 33 U/L (17-59); Bilirubin,Total 0.8 mg/dL (0.2-1.3); Blood Urea Nitrogen 18 mg/dL (9-20); Carbon Dioxide 29 mmol/L (22-30); Chloride 104 mmol/L (98-107); Estimated CRCL calculation 64 ml/min; Estimated Glomerular Filt Rate > 60; Glucose 132 mg/dL (65-110); Magnesium 1.7 mg/dL (1.6-2.3); Phosphorus 2.6 mg/dL (2.5-4.5); Potassium 3.3 mmol/L (3.4-5.0); Sodium 141 mmol/L (137-145)
[2022-02-21 04:55] LABS: Alveolar/Arterial O2 Gradient 87.5 mmHg; Base Excess ABG 0.8 mEq/l (+/-2.0); Carboxyhemoglobin 0.3 % THb (0-2.0); Fractional Inspired Oxygen 30 %; HCO3 ABG 24.4 mEq/l (22.0-26.0); Methemoglobin ABG 0.3 %THb (0-1.5); Oxygen Content ABG 16.1 %vol (16.0-22.0); Oxygen Saturation ABG 96.9 % (95.0-100.0); Oxyhemoglobin 95.5 % THb (90.0-100.0); PCO2 ABG 35.3 mmHg (35.0-45.0); PO2 ABG 84.9 mmHg (80.0-100.0); PO2 FiO2 Ratio Arterial Blood 2.83 %; Reduced Hemoglobin 3.9 %THb (0-5.0); Total Hemoglobin 11.9 g/dL (12.0-18.0); pH ABG 7.457 (7.350-7.450)
[2022-02-21 04:56] LABS: Arterial Blood Gas PEEP 5 cmH2O; Arterial Blood Gas Tidal Volume 400 ml; Arterial Blood Gas Vent Mode CMV; Arterial Blood Gas Ventilator rate 18 /MIN; Device VENTILATOR; Modified Allen's Test Pass; Site Drawn RIGHT RADIAL
[2022-02-21 07:15] LABS: Glucose Point of Care 130 mg/dl (65-105)
[2022-02-21] MEDS: MAGNESIUM SULF 2 GM/WATER 50ML 2 GM/50 ML BAG IVPB (09:23)
[2022-02-21] MEDS: POTASSIUM CHLORIDE 20 MEQ PACKET (FOR LIQUID) 40 MEQ FEED TUBE (09:25)
[2022-02-21] MEDS: MINERAL OIL/WHITE PETROLATUM OINTMENT 1 APPLIC EACH EYE (09:26)
[2022-02-21] MEDS: PANTOPRAZOLE SODIUM IV 40 MG VIAL IV PUSH (09:27)
[2022-02-21] MEDS: polyethylene glycoL 3350 17 GM POWD.PACK PO (09:27)
[2022-02-21] MEDS: LIDOCAINE 5% PATCH 1 PATCH TRANSDERM (09:27)
[2022-02-21] MEDS: ACETAMINOPHEN ELIXIR 325 MG/10.15 ML UDC 650 MG PO (09:27)
--- NOTE | 2022-02-21 09:29 | WPDINTPN ---
Progress Note: A&P Assessment and Plan (1) Acute hypercapnic respiratory failure: Code(s): J96.02 - Acute respiratory failure with hypercapnia Status: Acute Assessment and Plan: Acute respiratory failure likely due to pneumonia seen on chest x-ray which shows airspace opacities in the right midlung zone and upper lung zones. Baseline Emphysema -intubated on 02/17/2022 -chest x-ray reviewed -11/01 PSV trial was attempted patient failed due to high RSBI, increased work of breathing, tachycardia and significant ectopies. Patient was placed back on CMV -will try weaning trial again today -continue CMV mode of ventilation, peep of 5, 30% FiO2 -ABGs reviewed -continue Zosyn for pneumonia -Cultures negative till now. Discontinue vancomycin -continue bronchodilators (2) Cardiac arrest: Code(s): I46.9 - Cardiac arrest, cause unspecified Status: Acute Assessment and Plan: Cardiac arrest most likely related to respiratory distress and respiratory arrest -patient on a brief cardiac arrest with 1 round of CPR and epinephrine with ROSC -patient woke up post cardiac arrest according to the hospitalist and follows commands off sedation -cardiology following Echo cardiogram reviewed -EKG did not show any evidence of acute coronary injury Echo 1. Complete two-dimensional, color flow and Doppler transthoracic echocardiogram is performed. ? 2. Limited study with limited views. ? 3. Left ventricular chamber dimension is mildly enlarged. ? 4. Left ventricular systolic function is lower limits of normal, estimated at 50-55%. ? 5. There is no increased left ventricular wall thickness. ? 6. Left ventricular septal wall motion is abnormal with septal motion related to bundle branch block. ? 7. The left ventricular diastolic function is grade I diastolic dysfunction. ? 8. There is trace tricuspid valve regurgitation. ? 9. No pulmonary hypertension, estimated pulmonary arterial systolic pressure is 29 mmHg. (3) Elevated troponin level not due to acute coronary syndrome: Code(s): R77.8 - Other specified abnormalities of plasma proteins Status: Acute Assessment and Plan: Elevated troponin likely related to cardiac arrest Continue to monitor Cardiology following the patient and recommend conservative management EKG with no evidence of acute coronary problem (4) Severe protein-calorie malnutrition: Code(s): E43 - Unspecified severe protein-calorie malnutrition Status: Acute Assessment and Plan: Currently on tube feeds (5) Chronic wound of extremity: Status: Acute Assessment and Plan: Local wound care (6) Diabetes: Code(s): E11.9 - Type 2 diabetes mellitus without complications Status: Acute Assessment and Plan: Accu-Cheks and sliding scale insulin (7) Essential hypertension: Code(s): I10 - Essential (primary) hypertension Status: Acute Assessment and Plan: Hold all antihypertensives as blood pressures are borderline all sedation (8) GERD (gastroesophageal reflux disease): Code(s): K21.9 - Gastro-esophageal reflux disease without esophagitis Status: Acute Assessment and Plan: Continue Protonix (9) Anemia: Code(s): D64.9 - Anemia, unspecified Status: Acute Assessment and Plan: Patient has a drop in his hemoglobin which could be dilutional. He has not had a bowel movement till now but if he does we will check for all blood in stool IV PPI q.12 hours Hemoglobin has been stable (10) Electrolyte abnormality: Code(s): E87.8 - Other disorders of electrolyte and fluid balance, not elsewhere classified Status: Acute Assessment and Plan: Replace low potassium Plan DVT prophylaxis: Lovenox Stress ulcer prophylaxis: Protonix Nutrition: Continue tube feeds 02/20 Discussed with daughter at bedside updated her with patient's condition and plan of care. Discussed failed wean
[2022-02-21 10:10] LABS: Alveolar/Arterial O2 Gradient 100.7 mmHg; Base Excess ABG 0.6 mEq/l (+/-2.0); Fractional Inspired Oxygen 30 %; HCO3 ABG 24.8 mEq/l (22.0-26.0); Oxygen Content ABG 16.2 %vol (16.0-22.0); Oxyhemoglobin 92.8 % THb (90.0-100.0); PCO2 ABG 38.6 mmHg (35.0-45.0); PO2 ABG 67.8 mmHg (80.0-100.0); PO2 FiO2 Ratio Arterial Blood 2.26 %; Total Hemoglobin 12.4 g/dL (12.0-18.0); pH ABG 7.426 (7.350-7.450)
[2022-02-21 10:11] LABS: Modified Allen's Test Pass; Site Drawn LEFT RADIAL
[2022-02-21 10:12] LABS: Arterial Blood Gas Vent Mode SPONTANEOUS; Device VENTILATOR
[2022-02-21 10:13] LABS: Arterial Blood Gas PEEP 5 cmH2O; Arterial Blood Gas Pressure Support 5 cmH2O
[2022-02-21 11:26] LABS: Alveolar/Arterial O2 Gradient 633.6 mmHg; Base Excess ABG -2.4 mEq/l (+/-2.0); Carboxyhemoglobin 0.3 % THb (0-2.0); Fractional Inspired Oxygen 100 %; HCO3 ABG 24.4 mEq/l (22.0-26.0); Methemoglobin ABG 0.3 %THb (0-1.5); Oxygen Content ABG 9.1 %vol (16.0-22.0); PCO2 ABG 50.4 mmHg (35.0-45.0); PO2 FiO2 Ratio Arterial Blood 0.29 %; Reduced Hemoglobin 50.9 %THb (0-5.0); Total Hemoglobin 13.3 g/dL (12.0-18.0); pH ABG 7.303 (7.350-7.450)
[2022-02-21 11:27] LABS: Oxygen Saturation ABG 48.4 % (95.0-100.0)
[2022-02-21 11:28] LABS: Device AMBU BAG; Oxyhemoglobin 48.5 % THb (90.0-100.0); Site Drawn RIGHT RADIAL
--- NOTE | 2022-02-21 11:41 | P.PNCROSS_ITS ---
Event Note Event Note Event Note: 5/5 PSV SBT done for close to and 1 hour. RSBI, ABGI and Vitals were acceptable. Pt was awake and following commands. Patient was extubated. Immediately after extubation patient became hypoxic and desaturated to 80s. He was struggling to breathe and was in respiratory distress. Patient was placed on BiPAP. Despite that patient's saturation did not improve. Decision was made to reintubate patient and both patient and his daughter was agreeable. Patient was bag ventilated prior to intubation but we could not get his saturations up of 2 more than 80s in range. Patient was then Yonathan Intubated without any significant difficulty during the actual procedure. Post intubation patient was again bag ventilated with PEEP valve but we were not able to get his saturations above 70- 80%. Stat portable chest x-ray was done to rule out pneumothorax and it was negative for pneumothorax. ETT was seen 5-6 cm above april. Hyperinflated bilateral lungs consistent with COPD with bilateral infiltrate. Patient was given additional sedation and paralytic. Patient was bagged vent. His Saturation remained low. Patient was reposition, suction. On exam patient had decreased breath sound on the left side and significantly decreased breath sounds on the right side. ETT was confirmed with CO2 detector color change and no sounds in epigastric area and bilateral decreased breath sounds. Post chest x-ray ETT was adjusted by advancing 2 more cm. Patient's saturation remained in 70s and 80s depending on his position. I will check stat CT chest to rule out PE. During this whole process patient maintained his blood pressure, sinus tach rhythm and pulse. Patient's daughter and granddaughter at bedside and discussed and updated them with current events and treatment plan. Additional critical care time except separately billed procedures 50 minutes
--- NOTE | 2022-02-21 11:47 | WPDPROCEDUR ---
Procedures Intubation Intubation Date: 02/21/22 Intubation Time: 11:15 Consent: Consent was obtained from patient and patient's daughter A pre-procedural Time-Out was completed immediately before starting the procedure and confirmed: Patient Identification, Site, Procedure, Patient Position and the Availability of Requisite Equipment: Yes Sedative: etomidate Mg given: 20 Paralytic: succinylcholine Mg given: 50 Laryngoscope: fiber optic video scope Assist device used: fiber optic device ET tube size: 7.5 Tube secured depth (cm): 25 Tube secured location: lips Tube placement confirmation: visualized tube passing through cords, equal breath sounds bilaterally, no breath sounds over epigastrium and confirmation by capnometry Patient tolerated procedure: other Intubation complications: hypoxia Additional comments: See earlier note for details
--- NOTE | 2022-02-21 13:00 | PM.IMPN ---
Progress Note: A&P Assessment and Plan (1) Respiratory arrest: Code(s): R09.2 - Respiratory arrest Status: Acute (2) Ventricular tachycardia: Code(s): I47.2 - Ventricular tachycardia Status: Acute (3) Elevated troponin level not due to acute coronary syndrome: Code(s): R77.8 - Other specified abnormalities of plasma proteins Status: Acute (4) Severe protein-calorie malnutrition: Code(s): E43 - Unspecified severe protein-calorie malnutrition Status: Acute (5) Chronic wound of extremity: Status: Acute (6) Non-ST elevation ME (NSTEMI): Code(s): I21.4 - Non-ST elevation (NSTEMI) myocardial infarction Status: Acute Plan Patient has been admitted to the ICU following V-tach arrest that was in part due to acute on chronic hypercapnic respiratory failure. Patient has been intubated and is on sedation with fentanyl and Versed. Ventilator settings have been adjusted with tidal volume to 450 which is more appropriate given the patient's height. Continue rate at 22. Daily ABGs and chest x-rays have been ordered. Given the report of fever at home and respiratory failure patient was started on antibiotic therapy with Zosyn and vancomycin. Patient is high risk for aspiration given clinical history. Patient has elevated troponin due to cardiac strain from acute hypoxic respiratory failure. EKG does not demonstrate any acute changes in the patient was not complaining of any chest pain prior to today's events. Patient's troponin elevation is likely secondary to infection and hypoxia. It would not surprise me is patient's troponin continued to climb given his episode of ventricular tachycardia and subsequent arrest. Cardiology has been consulted. Will defer with her to start heparin drip to Cardiology Service. The patient reportedly has diet-controlled diabetes but was hyperglycemic on arrival to the ER. This could be in part due to stress response. Will check Accu-Cheks q.[address] patient on sliding scale insulin. Wound care to been consulted to manage the patient's chronic wounds. Dietitian has been consulted for tube feeding recommendations. 02/18/2022 interval history: patient was brought in with shortness of breath and had a cardiac arrest while at home and upon arrival to the emergency depart most likely secondary to respiratory failure currently patient is on the ventilator, suspect patient has pneumonia, being treated with Zosyn and vancomycin, patient javid is present in the room, patient recently diet since then he has lost 40lbs, patient is seen by equipment hire manager and appreciate. 02/19/2022 interval history: patient was brought in with shortness of breath and had a cardiac arrest while at home and upon arrival to the emergency depart most likely secondary to respiratory failure currently patient is on the ventilator, suspect patient has pneumonia, being treated with Zosyn and vancomycin, today patient is off sedation weaning trial is in progress, patient is strugling, will monitor, patient javid and son are present in the room, and helping patient stay calm for possible extubation, , patient recently since then he has lost 40lbs, patient is seen by equipment hire manager and appreciate. 02/20/2022 interval history: patient was brought in with shortness of breath and had a cardiac arrest while at home and upon arrival to the emergency depart most likely secondary to respiratory failure currently patient is on the ventilator, suspect patient has pneumonia, being treated with Zosyn and vancomycin, blood culture so far no growth, today again patient was off sedation weaning trial was given , patient was strugling, placed back on sedation and ventilator, will monitor, today patient sister and son are present in the room, patient recently since then he has lost 40lbs, patient is seen by equipment hire manager and appreciate. 02/21/2022 interval history: marlee
--- NOTE | 2022-02-21 13:24 | PCFNICU ---
ICU Rounding Note: Pt current nutrition is Vital AF 1.2 at 55 ml/hr. Last recorded weight is 52.2 kg,up from 46.3 kg on admit. Bowel Motility:+Bm reported 02/21 Labs Reviewed:Glu 132, Cr 0.5,Hct 33.0,Hgb 10.8 Meds Noted:Propofol, Vancomycin, Zosyn, Atrovent, Albuterol. Skin: Stage III pressure ulcer-right ankle, Stage II pressure ulcer-Left ankle. Additional Notes: Patient extubated and reintubated today. Nutrition recommendation: Vital AF 1.2 at 55 ml/hr. Propofol infusion documented at 9.89 ml/hr providing an additional 261 kcals. Recommend free water flush at 30 ml q 4 hours. Dietary Supplement: Willem BID for wound healing, providing an additional 90 kcals and 2.5 gms protein. Agree with diet orders. Following daily in ICU rounds. Will monitor weight, labs, tube feeding tolerance daily and reassessing every Friday and Friday.
[2022-02-21] MEDS: PROPOFOL IV EMULSION 100 ML 11.3 MG IV CONT (15:20)
--- NOTE | 2022-02-21 19:16 | PC.NURSE ---
Patient extubated per MD order post SBT, monika Winn present at bedside. Patient decompensated and reintubated per patient and family wishes. Unable to maintain oxygen saturation despite all efforts. Stat CTA obtained, general surgery consulted for chest tube. Family met with tube bending machine operator to review treatment options and decided to withdraw care. Initiated comfort measures.
--- NOTE | 2022-03-14 15:24 | PM.DDS ---
Discharge Summary Date and Time Date of : 02/21/22 Time of : 18:06 Provider Pronounced By: Chase Grimes RN and Laura Mckeon RN Probable Cause of Probable Cause of : respiratory arrest Summary Hospital Course: patient was brought in with shortness of breath and had a cardiac arrest while at home and upon arrival to the emergency depart most likely secondary to respiratory failure currently patient is on the ventilator, suspect patient has pneumonia, being treated with Zosyn and vancomycin, blood culture so far no growth, today again patient was off sedation weaning trial is going on, seen by rehabilitation program manager and ABG is ordered,? will monitor, currently no family members are in the room, ? patient recently since then he has lost 40lbs, patient is seen by rehabilitation program manager and appreciate. patient was weaned off the ventilator however he went to respiratory failure again and with consent of family patient was reintubated, after the chest x-ray showed pneumothorax at that time family decided not to place chest tube, and care was withdrawn patient later that day. Additional Data Confirmation of as documented by pronouncing clinician: Pupillary Reflex, Palpable Pulses, Response to Stimuli, Heart Tones and Breath Sounds Name of Provider Notified: Dr. Nazario and Dr. Mcghee Time Provider Notified: 18:33 Provider Requests Autopsy: No Family Requests Autopsy: No Information Systems Architect Notified: Yes Date [facility] Notified of : 02/21/22 Time [facility] Notified of : 18:10
== END 2022-02-21 18:06 | disposition expired | DRG 208 ==
LOC: ANHED 02-18 02:23 → ANHICU 02-18 02:30
PROVIDERS: Internal Medicine; Admitting Provider Internal Medicine; Emergency Provider General Practice; Visit Provider Family Medicine
DX: J96.02 Acute respiratory failure with hypercapnia (principal); J18.9 Pneumonia, unspecified organism; E43 Unspecified severe protein-calorie malnutrition; Z68.1 Body mass index [BMI] 19.9 or less, adult; L97.319 Non-pressure chronic ulcer of right ankle with unspecified severity; L97.329 Non-pressure chronic ulcer of left ankle with unspecified severity; J93.9 Pneumothorax, unspecified; I47.2 Ventricular tachycardia; J44.9 Chronic obstructive pulmonary disease, unspecified; I10 Essential (primary) hypertension; I46.9 Cardiac arrest, cause unspecified; E87.6 Hypokalemia; E78.5 Hyperlipidemia, unspecified; E11.9 Type 2 diabetes mellitus without complications; K21.9 Gastro-esophageal reflux disease without esophagitis; K22.2 Esophageal obstruction; H40.9 Unspecified glaucoma; G25.81 Restless legs syndrome; Z20.822 Contact with and (suspected) exposure to COVID-19; Z98.1 Arthrodesis status; Z66 Do not resuscitate
CPT/HCPCS: 31500; 36415; 36569; 36600; 70450; 71045; 71275; 74018; 80053; 80202; 81001; 82375; 82805; 82948; 83036; 83050; 83605; 83735; 83880; 84100; 84484; 85025; 85027; 85610; 85730; 87040; 87070; 87077; 87186; 87205; 93005; 93306; 94003; 94640; 96361; 96374; 96375; 99291; A9270; C1751; C9113; C9803; J0461; J1815; J2060; J2250; J2543; J2704; J2930; J3010; J3370; J3475; J7030; J7040; J7050; P9047; Q9967; U0003; U0005